=== PATIENT | male | born 1950 | race Caucasian/White ===

== ENCOUNTER → 2018-05-26 | Outpatient (CLI) | payer MEDICARE, BC ==
[~2018-05-26] MED LIST: ALLO300; Actos30 MG; BENAML10/40 PO; CARV6.25 PO; CODGUAEL PO; CYCL10; ELIQUIS2.5 MG; FENO160 PO; FOLI1 PO; HYDACE5 PO; HYDCHL50 PO; INS70/30PN SC; INSULANI SC; LOVA40 PO; LOVASA; WARF2.5 PO; htn med; other
[2018-05-26 18:39] LABS: Percent Saturation 19.9 % (20.0-50.0)
== END ==
LOC: LAB SHORT 12:53 → LAB 12:53
PROVIDERS: Internal Medicine Hematology & Oncology
DX: D64.9 Anemia, unspecified (principal)
CPT/HCPCS: 82728; 83540; 83550

== ENCOUNTER → 2019-03-12 | Outpatient (CLI) | payer MEDICARE, BC ==
[2019-03-13 08:05] LABS: Creatinine Urine 62.3 mg/dL (27.00-270.00); Protein, Urine Quantitative 71.1 mg/dL (0.0-11.9)
== END ==
LOC: LAB 07:30 → LAB SHORT 07:30 → LAB FUT 02-29 15:25
PROVIDERS: Internal Medicine Nephrology
DX: E55.9 Vitamin D deficiency, unspecified (principal); N18.3 Chronic kidney disease, stage 3 (moderate); D63.1 Anemia in chronic kidney disease; N25.81 Secondary hyperparathyroidism of renal origin; Z79.01 Long term (current) use of anticoagulants; R76.9 Abnormal immunological finding in serum, unspecified; R94.5 Abnormal results of liver function studies; R94.6 Abnormal results of thyroid function studies; G60.9 Hereditary and idiopathic neuropathy, unspecified
CPT/HCPCS: 81050; 82043; 82570; 84156

== ENCOUNTER 2019-09-12 07:20 | Day surgery (SDC) | payer MEDICARE, BC ==
[~2019-09-12] VITALS: Ht 170.2 cm; Wt 104.0 kg
[~2019-09-12 07:20] MED LIST changes: +ACTOS30 MG PO; +ALLO300 PO; +CARV25 PO; +CLON.1 PO; +CYCL10 PO; +ELIQUIS2.5 MG PO; +HIGH POTENCY I134 MG PO; +INSULANPEN SC; +IRBE75 PO; +LOVASTATIN40 MG PO; +Norco 7.5-3251 EACH PO; +TRULICITY0.75 MG/0. SC
== END 2019-09-12 09:07 | disposition home or self-care (01) ==
LOC: ORSCSDS 07:20
PROVIDERS: Ophthalmology
PROC: 08RK3JZ Replacement of Left Lens with Synthetic Substitute, Percutaneous Approach (ICD-10-PCS; principal; 2019-09-12 08:30)
DX: H25.12 Age-related nuclear cataract, left eye (principal); E11.36 Type 2 diabetes mellitus with diabetic cataract; G47.33 Obstructive sleep apnea (adult) (pediatric); E66.9 Obesity, unspecified; Z68.33 Body mass index [BMI] 33.0-33.9, adult; H26.9 Unspecified cataract; Z79.4 Long term (current) use of insulin
CPT/HCPCS: 82947; J2001; J2250; J3010; J3301; J7040; V2632

== ENCOUNTER → 2019-10-16 | Outpatient (CLI) | payer MEDICARE, BC | END | disposition home or self-care (01) | LOC: LAB SHORT 12:23 → PLD 12:23 | DX: D22.39 Melanocytic nevi of other parts of face (principal) | CPT/HCPCS: 88305 ==

== ENCOUNTER 2019-11-14 06:20 | Day surgery (SDC) | payer MEDICARE, BC ==
[~2019-11-14] VITALS: Ht 175.3 cm; Wt 106.0 kg
--- NOTE | 2019-11-14 06:47 | NUR ---
11/14/19 0647 Soha Etienne V PT STATES HE HAS A HEADACHE THAT STARTED "A FEW DAYS AGO" PT STATES HE THINKS THE HEADACHE IS RELATED TO HIS CATERACT. NO INTERVENTIONS NEEDED AT THIS TIME.
== END 2019-11-14 08:15 | disposition home or self-care (01) ==
LOC: ORSCSDS 06:20
PROVIDERS: Ophthalmology
PROC: 08RJ3JZ Replacement of Right Lens with Synthetic Substitute, Percutaneous Approach (ICD-10-PCS; principal; 2019-11-14 07:30)
DX: H25.11 Age-related nuclear cataract, right eye (principal); I10 Essential (primary) hypertension; E11.9 Type 2 diabetes mellitus without complications; G47.33 Obstructive sleep apnea (adult) (pediatric); N18.9 Chronic kidney disease, unspecified; E78.00 Pure hypercholesterolemia, unspecified; Z79.4 Long term (current) use of insulin; Z79.899 Other long term (current) drug therapy
CPT/HCPCS: 82947; J2001; J2250; J3010; J3301; V2632

== ENCOUNTER 2021-05-13 13:10 | Day surgery (SDC) | payer MEDICARE, BC ==
[~2021-05-13] VITALS: Ht 175.3 cm; Wt 114.7 kg
[2021-05-13] MEDS ORDERED: KLOR-CON 1010 ME3 PO (14:04)
[2021-05-13] MEDS ORDERED: IRBESARTAN75 M3 PO (14:04)
[2021-05-13] MEDS ORDERED: HYDR10 PO (14:04)
[2021-05-13] MEDS ORDERED: BASAGLAR K100 UNIT/3 SC (14:04)
[2021-05-13] MEDS ORDERED: FUROSEMIDE40 MG PO (14:04)
[2021-05-13] MEDS ORDERED: ATORVASTATIN CA20 MG PO (14:05)
== END 2021-05-13 14:45 | disposition home or self-care (01) ==
LOC: ORSCSDS 13:10
PROVIDERS: Internal Medicine Gastroenterology
PROC: 0DBM8ZX Excision of Descending Colon, Via Natural or Artificial Opening Endoscopic, Diagnostic (ICD-10-PCS; principal; 2021-05-13 14:30)
DX: Z12.11 Encounter for screening for malignant neoplasm of colon (principal); Z86.010 Personal history of colon polyps; D12.4 Benign neoplasm of descending colon; K57.30 Diverticulosis of large intestine without perforation or abscess without bleeding; K64.8 Other hemorrhoids; E66.9 Obesity, unspecified; G47.33 Obstructive sleep apnea (adult) (pediatric); Z98.84 Bariatric surgery status; E11.22 Type 2 diabetes mellitus with diabetic chronic kidney disease; I12.9 Hypertensive chronic kidney disease with stage 1 through stage 4 chronic kidney disease, or unspecified chronic kidney disease; N18.30 Chronic kidney disease, stage 3 unspecified; Z68.38 Body mass index [BMI] 38.0-38.9, adult; Z79.01 Long term (current) use of anticoagulants; Z79.4 Long term (current) use of insulin; Z79.899 Other long term (current) drug therapy
CPT/HCPCS: 82947; 88305; J0330; J0461; J2405; J2704; J7120

== ENCOUNTER 2022-03-23 07:47 | Day surgery (SDC) | payer MEDICARE, BC ==
[~2022-03-23] VITALS: Ht 175.3 cm; Wt 118.6 kg
[~2022-03-23 07:47] MED LIST changes: +ATORVASTATIN CA20 MG PO; +BASAGLAR K100 UNIT/3 SC; +FUROSEMIDE40 MG PO; +HYDR10 PO; +IRBESARTAN75 M3 PO; +KLOR-CON 1010 ME3 PO; +MINO2.5 PO; +Norco 5-325 Ta1 EACH PO
--- NOTE | 2022-03-23 09:09 | NUR ---
Ambulatory in Day SurgeryBair Paws warming gown applied. Surgical site prepped with 2% Chlorhexidine cloth wipe. History, Chart, Medications and Allergies reviewed before start of procedure.Lungs clear T/O to Auscultation. Patient confirms NPO status and agrees with scheduled surgery. Pre-Op teaching done. Pt verbalizes understanding. Patient States Post-Procedure ride home has been arranged, Patient reports completing Chlorhexadine shower X2 prior to admission to hospital. Ambulatory in Day SurgeryBair Paws warming gown applied. History, Chart, Medications and Allergies reviewed before start of procedure.Lungs clear T/O to Auscultation. Pre-Op teaching done. Pt verbalizes understanding. Surgical site prepped with 2% Chlorhexidine cloth wipe.
--- NOTE | 2022-03-23 11:52 | NUR ---
03/23/22 1152 Danilo Ortiz BLOOD SUGAR 100 TAKEN FROM RIGHT HAND AT 1148 PER ANESTHESIA.
[2022-03-23] MEDS ORDERED: Percocet 5-3251 EACH PO (15:45)
--- NOTE | 2022-03-23 18:26 | NUR ---
SHIFT SUMMARY SINCE ARRIVING TO THE UNIT, PT HAS DONE WELL. WASN'T ABLE TO WORK w/ THERAPY DUE TO SPINAL, BUT DID AMBULATE IN HALLWAYS & UP TO CHIAR AFTER SPINAL WORE OFF. PAIN CAME ON FAST BUT BETTER POST MEDICATION. EATING, DRINKING, VOIDING.
--- NOTE | 2022-03-24 00:33 | NUR ---
HYPERTENSIVE PT HYPERTENSIVE BP IN THE 170/180'S SBP. PT TOOL COZAAR AT HS, BUT UNABLE TO GIVE THE CARVEDILOL DUE TO CONSISTENT LOW HEARTRATE. DR. STONE NOTIFIED. NO NEW ORDERS AT THIS TIME, SHE STATES JUST TO MONITOR.
--- NOTE | 2022-03-24 05:42 | NUR ---
SHIFT SUMMARY PT POD 0 LEFT KNEE. PT OVERALL HAS DONE WELL OVERNIGHT, PAIN WELL CONTROLLED WITH OXY Q4. HE HAS BEEN UP AND AMBULATING. DRESSING C/D/I. PT DENIES N/T AND ABLE TO WIGGLE TOES. PT A/OX4, PLESANT WITH CARE. PT HAS BEEN HYPERTENSIVE, DR. STONE AWARE WITH NO NEW ORDERES GIVEN. NO ACUTE CHANGES OVERNIGHT, BED IN LOWEST POSIITON, CALL LIGHT WITHIN REACH.
[2022-03-24 05:47] LABS: BASOPHILS ABSOLUTE AUTO 0.01 K/mm3 (0.00-0.23); BASOPHILS PERCENT AUTO 0 % (0-2); EOSINOPHILS PERCENT AUTO 0 % (0-6); Hematocrit 26.4 % (37.0-53.0); Hemoglobin 8.2 g/dL (13.5-17.5); IMMATURE GRAN ABSOLUTE AUTO 0.03 K/mm3 (0.00-0.10); IMMATURE GRAN PERCENT AUTO 1 % (0-1); LYMPHOCYTES ABSOLUTE AUTO 0.26 K/mm3 (0.84-5.20); LYMPHOCYTES PERCENT AUTO 4 % (21-46); MONOCYTES ABSOLUTE AUTO 0.09 K/mm3 (0.16-1.47); MONOCYTES PERCENT AUTO 2 % (4-13); Mean Corpuscular HGB 29.1 pg (26.0-34.0); Mean Corpuscular HGB Conc 31.1 g/dL (31.5-36.5); Mean Corpuscular Volume 94 fL (80-100); Mean Platelet Volume 11.7 fL (9.1-12.4); NEUTROPHILS PERCENT AUTO 94 % (41-73); Platelet Count 189 K/mm3 (150-400); RDW Coefficient Variation 16.4 % (11.7-14.2); RDW Standard Deviation 56.3 fL (35.1-46.3); Red Blood Cell Count 2.82 M/mm3 (4.30-5.90); White Blood Cell Count 6.19 K/mm3 (4.00-11.30)
[2022-03-24 06:25] LABS: Bun/Creatinine Ratio 18.3 (12.0-20.0); Calcium, Blood 8.5 mg/dL (8.5-10.1); Creatinine, Blood 4.76 mg/dL (0.60-1.20); Potassium, Blood 6.1 mmol/L (3.5-5.5)
--- NOTE | 2022-03-24 06:45 | NUR ---
CRITICAL POTASSIUM CALL BACK FROM DR. ESPINOZA, HE STATES TO NOTIFY DAYSHIFT ATTENDING OF POTASSIUM RESULT. DAYSHIFT RN NOTIFIED. SEE CRITICAL VALUE NOTIFICATION FOR FURTHER DETAILS.
[2022-03-24 09:43] LABS: Bun/Creatinine Ratio 18.3 (12.0-20.0); Calcium, Blood 8.5 mg/dL (8.5-10.1); Creatinine, Blood 4.58 mg/dL (0.60-1.20); Potassium, Blood 5.7 mmol/L (3.5-5.5)
--- NOTE | 2022-03-24 11:20 | NUR ---
SCRIPT GIVEN TO TO GET FILLED
--- NOTE | 2022-03-24 14:35 | NUR ---
DISCHARGE PT STATES HE IS DONE WAITING FOR THERAPY & DEMANDS TO LEAVE. STATES HE HAS OUTPATIENT THERAPY WITHIN 2 DAYS. DISCHARGE EDUCATION DONE BY CLINICAL COORDINATOR. POLAR PACK & DRSGS SENT. ESCORTED OUT VIA W/C.
== END 2022-03-24 14:30 | disposition home or self-care (01) ==
LOC: SURS 07:47 → ORSCMMR 07:47 → SURS 13:31 → ORSCMMR 03-24 14:30
PROVIDERS: Family Medicine; Orthopaedic Surgery
PROC: 8E0Y0CZ Robotic Assisted Procedure of Lower Extremity, Open Approach (ICD-10-PCS; principal; 2022-03-23 09:15)
PROC: 0SRD0JA Replacement of Left Knee Joint with Synthetic Substitute, Uncemented, Open Approach (ICD-10-PCS; principal; 2022-03-23 09:15)
DX: M17.12 Unilateral primary osteoarthritis, left knee (principal); G47.33 Obstructive sleep apnea (adult) (pediatric); Z86.718 Personal history of other venous thrombosis and embolism; Z79.01 Long term (current) use of anticoagulants; E66.9 Obesity, unspecified; Z68.36 Body mass index [BMI] 36.0-36.9, adult; Z86.16 Personal history of COVID-19; E78.5 Hyperlipidemia, unspecified; I10 Essential (primary) hypertension; N17.9 Acute kidney failure, unspecified; E11.9 Type 2 diabetes mellitus without complications; Z79.899 Other long term (current) drug therapy; Z79.4 Long term (current) use of insulin
CPT/HCPCS: 27447; S2900; 36415; 73560-LT; 80048; 82947; 85025; 86850; 86900; 86901; 94660; 97110; 97161; A9270; C1776; J0171; J0690; J0735; J1100; J1170; J1815; J1940; J2250; J2370; J2405; J2704; J2795; J3010; J3370; J7030; J7050; J7060; J7120

== ENCOUNTER → 2022-05-27 | Outpatient (CLI) | payer MEDICARE, BC ==
[~2022-05-27] MED LIST changes: +Percocet 5-3251 EACH PO
[2022-05-27 18:07] LABS: Albumin, Blood 2.9 g/dL (3.4-5.0); Anion Gap 9 mmol/L (6-16); Blood Urea Nitrogen 85 mg/dL (8-24); Bun/Creatinine Ratio 16.2 (12.0-20.0); CO2, Blood 23 mmol/L (21-32); Calcium, Blood 8.7 mg/dL (8.5-10.1); Chloride, Blood 110 mmol/L (98-108); Creatinine, Blood 5.24 mg/dL (0.60-1.20); Glomerular Filtration Rate 11 (60-); Glucose, Blood 193 mg/dL (70-99); Phosphorus, Blood 5.7 mg/dL (2.5-4.9); Potassium, Blood 4.7 mmol/L (3.5-5.5); Sodium, Blood 142 mmol/L (136-145)
[2022-05-29 09:11] LABS: HBSAG SCREEN Negative (Negative); HCV AB <0.1 (0.0-0.9); HEP A AB, IGM Negative (Negative); HEP B CORE AB, IGM Negative (Negative)
== END | disposition home or self-care (01) ==
LOC: LAB SHORT 15:57 → LAB 15:57
PROVIDERS: Internal Medicine Nephrology
DX: N18.5 Chronic kidney disease, stage 5 (principal); D75.1 Secondary polycythemia; R76.9 Abnormal immunological finding in serum, unspecified; R94.5 Abnormal results of liver function studies; R94.6 Abnormal results of thyroid function studies; E83.51 Hypocalcemia
CPT/HCPCS: 80069; 80074; 86704

== ENCOUNTER 2022-05-28 13:52 | Inpatient (IN) | payer MEDICARE, BC ==
[~2022-05-28] VITALS: Ht 175.3 cm; Wt 118.2 kg
[2022-05-28 15:07] LABS: BASOPHILS ABSOLUTE AUTO 0.02 K/mm3 (0.00-0.23); BASOPHILS PERCENT AUTO 0 % (0-2); EOSINOPHILS ABSOLUTE AUTO 0.39 K/mm3 (0.00-0.68); EOSINOPHILS PERCENT AUTO 7 % (0-6); Hematocrit 24.1 % (37.0-53.0); Hemoglobin 7.4 g/dL (13.5-17.5); IMMATURE GRAN ABSOLUTE AUTO 0.05 K/mm3 (0.00-0.10); IMMATURE GRAN PERCENT AUTO 1 % (0-1); LYMPHOCYTES PERCENT AUTO 9 % (21-46); MONOCYTES ABSOLUTE AUTO 0.37 K/mm3 (0.16-1.47); MONOCYTES PERCENT AUTO 7 % (4-13); Mean Corpuscular HGB 28.8 pg (26.0-34.0); Mean Corpuscular HGB Conc 30.7 g/dL (31.5-36.5); Mean Corpuscular Volume 94 fL (80-100); Mean Platelet Volume 11.8 fL (9.1-12.4); NEUTROPHILS PERCENT AUTO 76 % (41-73); NRBC ABSOLUTE 0.02 K/mm3 (0.00-0.02); NRBC Auto 0.4 /100 WBC (0.0-0.2); Platelet Count 202 K/mm3 (150-400); RDW Coefficient Variation 18.9 % (11.7-14.2); RDW Standard Deviation 62.1 fL (35.1-46.3); Red Blood Cell Count 2.57 M/mm3 (4.30-5.90); White Blood Cell Count 5.53 K/mm3 (4.00-11.30)
[2022-05-28 15:18] LABS: Albumin, Blood 3.1 g/dL (3.4-5.0); Albumin/Globulin Ratio 0.9 (0.8-1.8); Bilirubin, Total 0.5 mg/dL (0.1-1.0); Bun/Creatinine Ratio 15.9 (12.0-20.0); Calcium, Blood 8.7 mg/dL (8.5-10.1); Creatinine, Blood 5.28 mg/dL (0.60-1.20); Globulin, Blood 3.5 g/dL (2.2-4.0); Potassium, Blood 4.4 mmol/L (3.5-5.5); Total Protein, Blood 6.6 g/dL (6.4-8.2)
--- NOTE | 2022-05-28 19:38 | NUR ---
CALLED DR GREEN- PT HAD A CONSULT FOR PERMACATH PLACEMENT, DR GONCALVES CAN NOT PLACE THOSE. NO IR IS AVAILABLE AT THIS TIME, DR GABRIEL WILL BE AVAILABLE ON TUESDAY AND CAN PLACE THOSE. CALLED DR GREEN TO SEE IF PRODUCTION SUPERINTENDENT HYDRO NEEDS TO BE CONSULTED TO PLACE A TEMPORARY CATHETER. PER DR GREEN HOLD OFF ON CONSULTING THEM AT THIS TIME WE WILL SEE HOW THE PT DOES OVERNIGHT AND REEVALUATE IN THE MORNING.
--- NOTE | 2022-05-28 19:50 | NUR ---
PT HOME MEDS RECONCILED- CALLED DR BABB. HE IS AWARE THEY ARE RECONCILED. HE WILL ORDER THEM TOMORROW. PT HAS NOT RECIEVED HIS MEDICATIONS TODAY, DR AWARE NO HOME MEDICATIONS ORDERED AT THIS TIME, PER DR BABB.
--- NOTE | 2022-05-28 20:45 | NUR ---
PT HERE JUST PRIOR TO CHANGE OF SHIFT. PT REPORTS HAVING A BM TODAY. PT GIVEN A SNACK AFTER CBG TAKEN TONIGHT. PT REPORTS HE OCCASIONALLY RUNS LOW ON HIS BLOOD SUGARS AT HOME. PT HAS A HISTORY OF JAHAIRA MCCARTHY JANUARY 29 - PT PLACED IN ISOLATION FOR MERSA HISTORY. CALL LIGHT WITHIN REACH. BED IN LOW POSITION. FLUIDS PROVIDED. PT ON 1L FLUID RESTRICTION. PT DENIES ANY PAIN OR DISCOMFORT.
--- NOTE | 2022-05-28 22:04 | NUR ---
PT REPORTS HE USED TO MONITOR HIS BLOOD SUGAR MORE OFTEN AT HOME, TYPICALLY HE ONLY MONITORS HIS BLOOD SUGAR ONCE A WEEK NOW, HE REPORTS HE IS "ABLE TO MAINTAIN HIS BLOOD SUGAR." PT REPORTS HE OCCASIONALLY RUNS LOW BLOOD SUGARS AT HOME, AND REPORTS HE KNOWS THE SIGNS/SYMPTOMS OF LOW BLOOD SUGAR. PT ALSO REPORTS HE HAS RECEIVED DIABETIC EDUCATION IN THE PAST, AND DECLINED ANY FURTHER DIABETIC EDUCATION. CALL LIGHT WITHIN REACH. BED IN LOW POSITION. PT REPORTS RECENT SURGERY ON HIS LEFT KNEE, MARCH 31 - HIS BROUGHT HIS LEFT LEG LIFT/ELEVATOR.
--- NOTE | 2022-05-28 23:02 | NUR ---
DR. GREEN IN TONIGHT TO SEE PT. CONSULT FOR PERMACATH WILL NEED TO BE FOLLOWED UP ON TOMORROW. DR. GREEN REPORTS HE WILL REVIEW AM LABS, AND PT IS CURRENTLY ON IV LASIX. I WILL REPORT THIS OFF TO ONCOMING SHIFT IN AM, REGARDING CONSULT ABOVE.
--- NOTE | 2022-05-29 02:26 | NUR ---
PT AWAKE, RESTING IN BED. PT DENIES ANY REQUESTS. CLEAR YELLOW URINE OUT IN THE URINAL. CALL LIGHT WITHIN REACH. BED IN LOW POSITION. FLUIDS AT BEDSIDE.
--- NOTE | 2022-05-29 04:12 | NUR ---
SHIFT SUMMARY - NO ACUTE CHANGES SINCE ADMIT LAST NOC. SEE 1938 NOTE FROM PAWEL, REGARDING DR. GREEN CONVERSATION AND DR. LEAL REGARDING PERMACATH PLACEMENT. PT DENIED ANY COMPLAINTS DURING THE NIGHT. PT SLEPT FOR APPX 4 HOURS TONIGHT. PT IS ON A 1L FLUID RESTRICTION. PT CONTINUES TO URINATE - CLEAR YELLOW URINE OUT LAST NOC. RESPIRATIONS EVEN AND UNLABORED THROUGHOUT THE NIGHT. CALL LIGHT WITHIN REACH. BED IN LOW POSITION. FLUIDS AT BEDSIDE. WILL CONTINUE TO MONITOR UNTIL AM SHIFT CHANGE.
--- NOTE | 2022-05-29 04:19 | NUR ---
PT PULLED OUT OF ISOLATION - DUE TO NOTE IN ADMIN DATA - REVIEWED WITH BENJAMIN ALTAMIRANO.
[2022-05-29 05:18] LABS: BASOPHILS ABSOLUTE AUTO 0.01 K/mm3 (0.00-0.23); BASOPHILS PERCENT AUTO 0 % (0-2); EOSINOPHILS ABSOLUTE AUTO 0.39 K/mm3 (0.00-0.68); EOSINOPHILS PERCENT AUTO 8 % (0-6); Hematocrit 22.3 % (37.0-53.0); Hemoglobin 6.8 g/dL (13.5-17.5); IMMATURE GRAN ABSOLUTE AUTO 0.02 K/mm3 (0.00-0.10); IMMATURE GRAN PERCENT AUTO 0 % (0-1); LYMPHOCYTES ABSOLUTE AUTO 0.61 K/mm3 (0.84-5.20); LYMPHOCYTES PERCENT AUTO 12 % (21-46); MONOCYTES ABSOLUTE AUTO 0.41 K/mm3 (0.16-1.47); MONOCYTES PERCENT AUTO 8 % (4-13); Mean Corpuscular HGB 28.8 pg (26.0-34.0); Mean Corpuscular HGB Conc 30.5 g/dL (31.5-36.5); Mean Corpuscular Volume 95 fL (80-100); Mean Platelet Volume 11.3 fL (9.1-12.4); NEUTROPHILS ABSOLUTE AUTO 3.74 K/mm3 (1.96-9.15); NEUTROPHILS PERCENT AUTO 72 % (41-73); NRBC ABSOLUTE 0.02 K/mm3 (0.00-0.02); NRBC Auto 0.4 /100 WBC (0.0-0.2); Platelet Count 185 K/mm3 (150-400); RDW Coefficient Variation 19.2 % (11.7-14.2); RDW Standard Deviation 62.9 fL (35.1-46.3); Red Blood Cell Count 2.36 M/mm3 (4.30-5.90); White Blood Cell Count 5.18 K/mm3 (4.00-11.30)
[2022-05-29 05:52] LABS: Albumin, Blood 2.8 g/dL (3.4-5.0); Albumin/Globulin Ratio 0.9 (0.8-1.8); Bilirubin, Total 0.5 mg/dL (0.1-1.0); Bun/Creatinine Ratio 15.9 (12.0-20.0); Calcium, Blood 8.5 mg/dL (8.5-10.1); Creatinine, Blood 5.29 mg/dL (0.60-1.20); Magnesium, Blood 2.4 mg/dL (1.6-2.4); Phosphorus, Blood 5.6 mg/dL (2.5-4.9); Potassium, Blood 4.4 mmol/L (3.5-5.5); Total Protein, Blood 5.8 g/dL (6.4-8.2)
--- NOTE | 2022-05-29 10:46 | NUR ---
CALLED DR BABB- NIGHT HOSPITALIST HAD ALREADY ORDERED [address] BABB IS AWARE AND WOULD LIKE A SECOND UNIT TRANSFUSED WELL AFTER THIS UNIT IS COMPLETED.
--- NOTE | 2022-05-29 11:24 | NUR ---
BLOOD VITALS AND LUNG REASSESS- PT HAD FINE CRACKLES NOTED THIS MORNING AT THE START OF THE TRANSFUSION, ON REASSESS IT WAS NOTED THAT THE PT LUNG BASES SEEM TO BE DEMINISHED AND CRACKLES ARE A LITTLE HIGHER. CALLED DR BABB TO CONFIRM HE WANTS THE PT TO RECIEVE THE SECOND UNIT GIVEN THESE FINDINGS. PERIPHERAL EDEMA HAS GONE DOWN AND PER DR GREEN THE IV LASIX IS TO BE REDUCED TO ONCE DAILY. DR OLVERA. ORDER RECIEVED TO HOLD THE SECOND UNIT OF BLOOD TODAY.
--- NOTE | 2022-05-29 18:37 | NUR ---
SHIFT SUMMARY: PT ALERT AND ORIENTATED. PT RECEIVED I UNIT OF PRBC'C AT 1015. PT TOLERATED BLOOD TRANSFUSIONS WITH NO ADVERSE REACTIONS. PT ON 30MIN ASSESSMENT OF BLOOD TRANSFUSION HAD BILATERAL DIMINISHED LUNGS SOUNDS WITH CRACKLES. PT VITAL SIGNS STABLE AND BLOOD TRANSFUSION CONTIUNED. DR. SEXTON ORDERED 1 UNIT OF PRBC'S TO BE HELD UNTIL MORNING LABS ON 05/30/22 DR. GREEN ORDERED IV LASIX TO BE CHANGED FROM BID TO DAILY STARTING 06/30/22. PT AMBULATED IN THE ROOM INDEPENDANTLY. PT HAD DYSPNEA ON EXERTION WITH PERIODS OF REST. PT CONTIENT OF BOWEL AND BLADDER, PT FORGETS AT TIMES TO USE URINAL FOR STRICT I&O MONITORING. PT ON A FLUID RESTRICTION OF 1000ML. PT RESTING IN BED WITH CALL LIGHT WITHIN REACH.
--- NOTE | 2022-05-29 20:00 | NUR ---
PT VISITING WITH FAMILY. NO NEEDS. CALL LT IN REACH.
--- NOTE | 2022-05-29 22:00 | NUR ---
NO ACUTE CHANGES. PT WATCHING TV. CALL LT IN REACH.
--- NOTE | 2022-05-30 00:49 | NUR ---
PT RESTING QUIETLY. CALL LT IN REACH.
--- NOTE | 2022-05-30 02:27 | NUR ---
PT RESTING QUIETLY. CPAP IN PLACE. 95% CONT BIOX. CALL LT IN REACH.
--- NOTE | 2022-05-30 03:42 | NUR ---
PT CONTINUES TO REST QUIETLY. CPAP IN PLACE. CONT BIOX IN PLACE. CALL LT IN REACH.
--- NOTE | 2022-05-30 03:45 | NUR ---
SHIFT SUMMARY: PT RESTED WELL. WORE CPAP T/O SHIFT, RA, O2 SATS 95%. A/O. USES CALL LT APPROPRIATELY. NO COMPLAINTS. DENIED SOB. BLE SWELLING IMPROVING. SCDS IN PLACE. FOLLOWING 1 LITER FLUID RESTRICTION. VOIDING WELL. NO ACUTE CHANGES. WILL CONTINUE TO PROVIDE CARE UNTIL SHIFT REPORT.
[2022-05-30 05:19] LABS: BASOPHILS ABSOLUTE AUTO 0.02 K/mm3 (0.00-0.23); BASOPHILS PERCENT AUTO 0 % (0-2); EOSINOPHILS ABSOLUTE AUTO 0.37 K/mm3 (0.00-0.68); EOSINOPHILS PERCENT AUTO 6 % (0-6); Hematocrit 24.1 % (37.0-53.0); Hemoglobin 7.5 g/dL (13.5-17.5); IMMATURE GRAN ABSOLUTE AUTO 0.02 K/mm3 (0.00-0.10); IMMATURE GRAN PERCENT AUTO 0 % (0-1); LYMPHOCYTES ABSOLUTE AUTO 0.41 K/mm3 (0.84-5.20); LYMPHOCYTES PERCENT AUTO 6 % (21-46); MONOCYTES ABSOLUTE AUTO 0.48 K/mm3 (0.16-1.47); MONOCYTES PERCENT AUTO 8 % (4-13); Mean Corpuscular HGB 28.8 pg (26.0-34.0); Mean Corpuscular HGB Conc 31.1 g/dL (31.5-36.5); Mean Corpuscular Volume 93 fL (80-100); Mean Platelet Volume 11.6 fL (9.1-12.4); NEUTROPHILS ABSOLUTE AUTO 5.06 K/mm3 (1.96-9.15); NEUTROPHILS PERCENT AUTO 80 % (41-73); NRBC ABSOLUTE 0.03 K/mm3 (0.00-0.02); NRBC Auto 0.5 /100 WBC (0.0-0.2); Platelet Count 176 K/mm3 (150-400); RDW Coefficient Variation 18.9 % (11.7-14.2); RDW Standard Deviation 60.2 fL (35.1-46.3); White Blood Cell Count 6.36 K/mm3 (4.00-11.30)
[2022-05-30 05:29] LABS: Albumin, Blood 2.9 g/dL (3.4-5.0); Albumin/Globulin Ratio 0.9 (0.8-1.8); Bilirubin, Total 0.8 mg/dL (0.1-1.0); Bun/Creatinine Ratio 15.9 (12.0-20.0); Calcium, Blood 8.5 mg/dL (8.5-10.1); Creatinine, Blood 5.03 mg/dL (0.60-1.20); Globulin, Blood 3.2 g/dL (2.2-4.0); Magnesium, Blood 2.2 mg/dL (1.6-2.4); Potassium, Blood 4.3 mmol/L (3.5-5.5); Total Protein, Blood 6.1 g/dL (6.4-8.2)
--- NOTE | 2022-05-30 12:40 | NUR ---
DR. ROMERO: PT LANTUS REDUCED FROM 10 UNITS TO 5 UNITS.
--- NOTE | 2022-05-30 18:50 | NUR ---
SHIFT SUMMARY: PT ALERT AND OREINTATED SITTING IN BED. PT AMBULATED IN ROOM INDEPENDANTLY. DR. SEXTON DECREASED LANTUS FROM 10 UNITS TO 5 UNITS AND ADDED THE ROBITUSSIN 10ML BID PRN FOR A NONPRODUCTIVE COUGH. PT IS ON CONTINOUS PULSE OXIMETER STATING IN THE 90'S. PROVIDER CONSULT PLACE THROUGH ORDER MANAGEMENT FOR A CONSULTATION TO DR. MURILLO FOR A PERMACATH PLACEMENT FOR HEMODIALYSIS BY RN PAWEL Loyd. PT RESTING IN BED WITH CALL LIGHT WITHIN REACH.
--- NOTE | 2022-05-30 21:40 | NUR ---
SNACK GIVEN TO PT. PT'S ASSISTED HIM WITH A SHOWER, STATES HE FEELS SO MUCH BETTER. NO COMPLAINTS. CBG 145, NO COVERAGE INDICATED. NO OTHER NEEDS. WILL CONTINUE TO PROVIDE CARE T/O SHIFT.
--- NOTE | 2022-05-30 22:43 | NUR ---
PT RESTING QUIETLY. CPAP ON. CONT BIOX 94%. CALL LT IN REACH.
--- NOTE | 2022-05-31 | NUR ---
PT RESTING QUIETLY. CPAP AND CONT BIOX IN PLACE. CALL LT IN REACH.
--- NOTE | 2022-05-31 01:43 | NUR ---
PT RESTING QUIETLY. CALL LT IN REACH.
--- NOTE | 2022-05-31 03:51 | NUR ---
SHIFT SUMMARY: NO ACUTE CHANGES. PT RESTED WELL T/O SHIFT. NO COMPLAINTS. CPAP DURING SLEEP WITH CONT BIOX IN PLACE. HAS BEEN INDEP IN RM. RA. SWELLING IN BLE IS IMPROVING. WILL CONTINUE TO PROVIDE CARE UNTIL SHIFT REPORT.
[2022-05-31 05:32] LABS: Hematocrit 23.2 % (37.0-53.0); Hemoglobin 7.2 g/dL (13.5-17.5)
[2022-05-31 05:48] LABS: Albumin, Blood 2.6 g/dL (3.4-5.0); Anion Gap 8 mmol/L (6-16); Blood Urea Nitrogen 84 mg/dL (8-24); Bun/Creatinine Ratio 17.4 (12.0-20.0); CO2, Blood 25 mmol/L (21-32); Calcium, Blood 8.5 mg/dL (8.5-10.1); Chloride, Blood 112 mmol/L (98-108); Creatinine, Blood 4.83 mg/dL (0.60-1.20); Glomerular Filtration Rate 12 (60-); Glucose, Blood 100 mg/dL (70-99); Magnesium, Blood 2.2 mg/dL (1.6-2.4); Phosphorus, Blood 4.8 mg/dL (2.5-4.9); Potassium, Blood 4.1 mmol/L (3.5-5.5); Sodium, Blood 145 mmol/L (136-145)
[2022-05-31 12:19] LABS: Influenza A, PCR NEGATIVE (NEGATIVE); Influenza B, PCR NEGATIVE (NEGATIVE); Resp Syncytial Virus, PCR NEGATIVE (NEGATIVE); SARS-Cov-2 (COVID-19) PCR, MMC NEGATIVE (NEGATIVE)
--- NOTE | 2022-05-31 16:55 | NUR ---
05/31/22 1655 Subha Keys 2G ANCEF GIVEN FROM ANESTHESIA PYXIS
--- NOTE | 2022-05-31 18:24 | NUR ---
SHIFT SUMMARY PT RETURNED FROM PERMACATH SURGERY AT 1715. PERMACATH TO RIGHT CHEST WALL, NO BLEEDING, BRUISING OR SWELLING. PT FEELS NO PAIN, BUT SOME PRESSURE. HAD A BM TODAY AND STATES THAT STOMACH FEELS MUCH BETTER. PT WILL GET DIALYSIS TOMORROW AND WILL REMAIN UNIL A CHAIR TIME IS FOUND. BED IN LOWEST POSITION AND CALL LIGHT IN REACH. FAMIY IN ROOM.
[2022-06-01 05:06] LABS: BASOPHILS ABSOLUTE AUTO 0.01 K/mm3 (0.00-0.23); BASOPHILS PERCENT AUTO 0 % (0-2); EOSINOPHILS PERCENT AUTO 0 % (0-6); Hemoglobin 7.9 g/dL (13.5-17.5); IMMATURE GRAN ABSOLUTE AUTO 0.04 K/mm3 (0.00-0.10); IMMATURE GRAN PERCENT AUTO 1 % (0-1); LYMPHOCYTES ABSOLUTE AUTO 0.21 K/mm3 (0.84-5.20); LYMPHOCYTES PERCENT AUTO 4 % (21-46); MONOCYTES ABSOLUTE AUTO 0.03 K/mm3 (0.16-1.47); MONOCYTES PERCENT AUTO 1 % (4-13); Mean Corpuscular HGB 28.5 pg (26.0-34.0); Mean Corpuscular HGB Conc 30.4 g/dL (31.5-36.5); Mean Corpuscular Volume 94 fL (80-100); Mean Platelet Volume 10.6 fL (9.1-12.4); NEUTROPHILS ABSOLUTE AUTO 4.81 K/mm3 (1.96-9.15); NEUTROPHILS PERCENT AUTO 94 % (41-73); Platelet Count 176 K/mm3 (150-400); RDW Standard Deviation 63.4 fL (35.1-46.3); Red Blood Cell Count 2.77 M/mm3 (4.30-5.90)
--- NOTE | 2022-06-01 05:23 | NUR ---
SHIFT SUMMARY: PT IS ALERT AND ORIENTED. PT IS CALM AND COOPERATIVE WITH CARE. PT CALLS APPROPRIATELY. PT IS INDEPENDENT IN THE ROOM. PT DENIES PAIN, NAUSEA, VOMITING, AND SOB. PT SLEPT MUCH OF THE NIGHT WHEN NOT DISTURBED. NO ACUTE CHANGES OR COMPLICATIONS THIS SHIFT. BED IN LOW POSITION, CALL LIGHT WITHIN REACH. WILL CONTINUE TO MONITOR.
[2022-06-01 06:16] LABS: Percent Saturation 14.3 % (20.0-50.0)
[2022-06-01 06:22] LABS: Albumin, Blood 2.5 g/dL (3.4-5.0); Albumin/Globulin Ratio 0.7 (0.8-1.8); Bilirubin, Total 0.4 mg/dL (0.1-1.0); Bun/Creatinine Ratio 17.8 (12.0-20.0); Calcium, Blood 8.3 mg/dL (8.5-10.1); Creatinine, Blood 4.94 mg/dL (0.60-1.20); Globulin, Blood 3.4 g/dL (2.2-4.0); Phosphorus, Blood 5.5 mg/dL (2.5-4.9); Potassium, Blood 4.7 mmol/L (3.5-5.5); Total Protein, Blood 5.9 g/dL (6.4-8.2)
--- NOTE | 2022-06-01 17:24 | NUR ---
SHIFT SUMMARY PT HAD DIALYSIS SHAHZ[facility] . HE DID VERY WELL, WAS ABLE TO GIVE ALL SCHEDULED BP MEDICATIONS AFTER. HE IS EATING, SWELLING HAS GONE DOWN. PT CAN BREATHE MUCH EASIER AND HE IS EAGER TO GO HOME. HAS CHECKED OFF PT IS WAITING FOR A DIALYSIS CHAIR AND WILL THEN DISCHARGE
[2022-06-02 04:40] LABS: Hematocrit 24.3 % (37.0-53.0); Hemoglobin 7.5 g/dL (13.5-17.5)
[2022-06-02 05:01] LABS: Albumin, Blood 2.5 g/dL (3.4-5.0); Anion Gap 7 mmol/L (6-16); Blood Urea Nitrogen 73 mg/dL (8-24); Bun/Creatinine Ratio 16.8 (12.0-20.0); CO2, Blood 28 mmol/L (21-32); Chloride, Blood 105 mmol/L (98-108); Creatinine, Blood 4.35 mg/dL (0.60-1.20); Glomerular Filtration Rate 14 (60-); Glucose, Blood 165 mg/dL (70-99); Magnesium, Blood 2.1 mg/dL (1.6-2.4); Phosphorus, Blood 4.2 mg/dL (2.5-4.9); Potassium, Blood 3.9 mmol/L (3.5-5.5); Sodium, Blood 140 mmol/L (136-145)
--- NOTE | 2022-06-02 05:45 | NUR ---
SHIFT SUMMARY: PT IS ALERT AND ORIENTED. PT IS CALM AND COOPERATIVE WITH CARE. PT CALLS APPROPROPRIATELY. PT UP WALKING IN THE ROOM AND HALLWAY EARLY IN THE NIGHT. PT DENIES PAIN, NAUSEA, VOMITING, AND SOB. NO ACUTE CHANGES OR COMPLICATIONS OVERNIGHT. WILL CONTINUE TO MONITOR.
[2022-06-02 08:11] LABS: HBSAG SCREEN Negative (Negative); HCV AB <0.1 (0.0-0.9); HEP A AB, IGM Negative (Negative); HEP B CORE AB, IGM Negative (Negative); HEP B CORE AB, TOT Negative (Negative)
--- NOTE | 2022-06-02 18:21 | NUR ---
SHIFT SUMMARY NO ACUTE CHANGES THIS SHIFT. PTS BLOOD PRESSURE WAS SOFT TODAY BUT RESOLVED POST DIALYSIS. PT IS EAGER TO LEAVE, BUT STILL LOOKING FOR A CHAIR IN DIALYSIS. BED IN LOWEST POSITION, CALL LIGHT IN REACH, IN ROOM
[2022-06-03 05:06] LABS: Hemoglobin 7.8 g/dL (13.5-17.5)
[2022-06-03 05:41] LABS: Albumin, Blood 2.6 g/dL (3.4-5.0); Anion Gap 7 mmol/L (6-16); Blood Urea Nitrogen 48 mg/dL (8-24); Bun/Creatinine Ratio 13.3 (12.0-20.0); CO2, Blood 30 mmol/L (21-32); Calcium, Blood 8.1 mg/dL (8.5-10.1); Chloride, Blood 103 mmol/L (98-108); Glomerular Filtration Rate 17 (60-); Glucose, Blood 134 mg/dL (70-99); Magnesium, Blood 1.9 mg/dL (1.6-2.4); Phosphorus, Blood 3.1 mg/dL (2.5-4.9); Potassium, Blood 3.9 mmol/L (3.5-5.5); Sodium, Blood 140 mmol/L (136-145)
--- NOTE | 2022-06-03 06:08 | NUR ---
SHIFT SUMMARY PATIENT ALERT AND ORIENTED. HAD NO COMPLAINTS OF PAIN OR SHORTNESS OF BREATH. NO ACUTE ISSUES NOTED OVERNIGHT. CALL LIGHT WITHIN REACH. REPORT GIVEN TO ONCOMING RN.
--- NOTE | 2022-06-03 16:43 | NUR ---
ALERT AND ORIENTED, PLEASANT TO CARE, MAKES NEEDS KNOWN, NO DIALYSIS TODAY, PATIENT IS STILL WAITING FOR BED AVAILABLITY FOR DIALYSIS BEFORE HE CAN DISCHARGE, PERMA CATH TO [place], GAIL NO S/S OF INFECTION, INDEPENDENT IN ROOM, WILL CONITNUE TO MONITOR
[2022-06-04 04:47] LABS: Hematocrit 25.2 % (37.0-53.0); Hemoglobin 7.7 g/dL (13.5-17.5)
[2022-06-04 05:08] LABS: Albumin, Blood 2.5 g/dL (3.4-5.0); Anion Gap 8 mmol/L (6-16); Blood Urea Nitrogen 75 mg/dL (8-24); Bun/Creatinine Ratio 19.5 (12.0-20.0); CO2, Blood 28 mmol/L (21-32); Calcium, Blood 8.2 mg/dL (8.5-10.1); Chloride, Blood 104 mmol/L (98-108); Creatinine, Blood 3.84 mg/dL (0.60-1.20); Glomerular Filtration Rate 16 (60-); Glucose, Blood 135 mg/dL (70-99); Phosphorus, Blood 3.4 mg/dL (2.5-4.9); Potassium, Blood 3.6 mmol/L (3.5-5.5); Sodium, Blood 140 mmol/L (136-145)
--- NOTE | 2022-06-04 13:00 | NUR ---
patient discharged home, both patient and stated undestanding of discharge needs and follow up, patient pleasant to care
== END 2022-06-04 13:05 | disposition home or self-care (01) | DRG 674 ==
LOC: ER 13:52 → MEDS 16:30 → ENPENDDIS 06-01 17:14 → MEDS 06-04 13:05
PROVIDERS: Hospitalist; Internal Medicine Nephrology; Student in an Organized Health Care Education/Training Program; Surgery; ADMIT Internal Medicine
PROC: 30233N1 Transfusion of Nonautologous Red Blood Cells into Peripheral Vein, Percutaneous Approach (ICD-10-PCS; 2022-05-29)
PROC: 02HV33Z Insertion of Infusion Device into Superior Vena Cava, Percutaneous Approach (ICD-10-PCS; 2022-05-31)
PROC: B548ZZA Ultrasonography of Superior Vena Cava, Guidance (ICD-10-PCS; 2022-05-31)
PROC: 5A1D70Z Performance of Urinary Filtration, Intermittent, Less than 6 Hours Per Day (ICD-10-PCS; 2022-05-31)
PROC: 0JH63XZ Insertion of Tunneled Vascular Access Device into Chest Subcutaneous Tissue and Fascia, Percutaneous Approach (ICD-10-PCS; principal; 2022-05-31 16:00)
DX: N17.9 Acute kidney failure, unspecified (principal); D68.59 Other primary thrombophilia; I13.2 Hypertensive heart and chronic kidney disease with heart failure and with stage 5 chronic kidney disease, or end stage renal disease; E87.70 Fluid overload, unspecified; N18.6 End stage renal disease; N25.81 Secondary hyperparathyroidism of renal origin; Z20.822 Contact with and (suspected) exposure to COVID-19; I50.9 Heart failure, unspecified; E11.22 Type 2 diabetes mellitus with diabetic chronic kidney disease; D63.1 Anemia in chronic kidney disease; E78.5 Hyperlipidemia, unspecified; Z96.652 Presence of left artificial knee joint; Z98.84 Bariatric surgery status; Z86.711 Personal history of pulmonary embolism; Z86.718 Personal history of other venous thrombosis and embolism; Z88.8 Allergy status to other drugs, medicaments and biological substances; Z79.4 Long term (current) use of insulin; Z79.899 Other long term (current) drug therapy
CPT/HCPCS: 0241U; 36415; 71045; 77001; 80053; 80069; 80074; 82607; 82728; 82746; 82947; 83540; 83550; 83735; 83880; 84100; 85014; 85018; 85025; 86317; 86704; 86708; 86803; 86850; 86900; 86901; 86923; 87340; 93005; 93010; 94660; 94760; 94762; 96372; 96374; 96376; 99285-25; A9270; C1750; G0378; J0881; J1100; J1644; J1815; J1940; J2001; J2405; J2704; J3010; J7030; J7050; P9016

== ENCOUNTER → 2022-09-30 | Outpatient (CLI) | payer MEDICARE, BC | LOC: LAB SHORT 15:08 | DX: R94.31 Abnormal electrocardiogram [ECG] [EKG] (principal) | CPT/HCPCS: 84484 ==

== ENCOUNTER 2023-11-14 07:08 | Day surgery (SDC) | payer MEDICARE, BC ==
[~2023-11-14] VITALS: Ht 175.3 cm; Wt 107.0 kg
[~2023-11-14 07:08] MED LIST changes: +Calcium Acetat667 MG PO; +Carisoprodol350 MG PO; +FEOSOL BIFERA 228 MG; +GABA100 PO; +HYDR1TAB94 PO; +KRILLOIL; +MULVITA PO; +POTA10T PO; +THERA-D2000 UNIT PO; +UBID10 PO; +[UNRECOGNIZED DRUG - OTHER]
[2023-11-14 07:37] VITALS: BP 138/47
[2023-11-14 08:48] VITALS: BP 100/36
[2023-11-14 09:00] VITALS: BP 104/36
[2023-11-14 09:15] VITALS: BP 108/40
[2023-11-14 09:30] VITALS: BP 98/32
--- NOTE | 2023-11-14 09:52 | NUR ---
PT AND S/O VERBALIZES UNDERSTANDING WRITTEN INSTRUCTIONS. DENIES QUESTIONS OR CONCERNS. PT R RADIAL TR BAND FULLY DEFLATED. NO BLEEDING OR HEMATOMA NOTED. VSS. NADN. CALL LIGHT WITHIN REACH.
--- NOTE | 2023-11-14 09:59 | NUR ---
PT DRESSES SELF WITH MINIMAL ASSISTANCE. PT AMBULUATES TO RESTROOM AND BACK WITHOUT DIFF. PT R RADIAL TR BAND REMOVED. NO BLEEDING OR HEMATOMA NOTED. VSS. NADN. DOT CLOTH APPLIED TO R RADIAL WITH SPLINT. PT TOLERATES WELL. IV DC'D. CATH INTACT. PRESSURE DSG APPLIED. PT DC TO HOME VIA WC BY S/O.
== END 2023-11-14 10:34 | disposition home or self-care (01) ==
LOC: MHTC 07:08
DX: E11.22 Type 2 diabetes mellitus with diabetic chronic kidney disease (principal); N18.6 End stage renal disease; Z99.2 Dependence on renal dialysis; Z88.5 Allergy status to narcotic agent; Z88.8 Allergy status to other drugs, medicaments and biological substances; I35.0 Nonrheumatic aortic (valve) stenosis
CPT/HCPCS: 76937; 82947; 93454; 99152; C1769; C1894; J1644; J2250; J3010; J7030; J7050; Q9967

== ENCOUNTER 2024-04-26 12:34 | Inpatient (IN) | payer MEDICARE, BC ==
[~2024-04-26] VITALS: Ht 175.3 cm; Wt 105.6 kg
[2024-04-26 12:50] VITALS: BP 132/63
[2024-04-26] MEDS ORDERED: Benzonatate 100 MG Cap PO PRN (13:35)
[2024-04-26] MEDS ORDERED: Calcium Carbon500 MG PO (13:36)
[2024-04-26 14:19] LABS: BASOPHILS ABSOLUTE AUTO 0.03 K/mm3 (0.00-0.23); BASOPHILS PERCENT AUTO 0 % (0-2); EOSINOPHILS ABSOLUTE AUTO 0.22 K/mm3 (0.00-0.68); EOSINOPHILS PERCENT AUTO 2 % (0-6); Hematocrit 27.6 % (37.0-53.0); Hemoglobin 8.9 g/dL (13.5-17.5); IMMATURE GRAN ABSOLUTE AUTO 0.04 K/mm3 (0.00-0.10); IMMATURE GRAN PERCENT AUTO 0 % (0-1); LYMPHOCYTES ABSOLUTE AUTO 0.41 K/mm3 (0.84-5.20); LYMPHOCYTES PERCENT AUTO 5 % (21-46); MONOCYTES ABSOLUTE AUTO 0.43 K/mm3 (0.16-1.47); MONOCYTES PERCENT AUTO 5 % (4-13); Mean Corpuscular HGB Conc 32.2 g/dL (31.5-36.5); Mean Corpuscular Volume 96 fL (80-100); Mean Platelet Volume 10.5 fL (9.1-12.4); NEUTROPHILS ABSOLUTE AUTO 8.01 K/mm3 (1.96-9.15); NEUTROPHILS PERCENT AUTO 88 % (41-73); Platelet Count 218 K/mm3 (150-400); RDW Coefficient Variation 15.7 % (11.7-14.2); RDW Standard Deviation 54.8 fL (35.1-46.3); Red Blood Cell Count 2.87 M/mm3 (4.30-5.90); White Blood Cell Count 9.14 K/mm3 (4.00-11.30)
[2024-04-26 14:39] LABS: Albumin, Blood 2.3 g/dL (3.4-5.0); Albumin/Globulin Ratio 0.5 (0.8-1.8); Bilirubin, Total 0.5 mg/dL (0.1-1.0); Bun/Creatinine Ratio 11.4 (12.0-20.0); Calcium, Blood 8.2 mg/dL (8.5-10.1); Creatinine, Blood 7.54 mg/dL (0.60-1.20); Globulin, Blood 4.3 g/dL (2.2-4.0); Phosphorus, Blood 3.6 mg/dL (2.5-4.9); Total Protein, Blood 6.6 g/dL (6.4-8.2)
[2024-04-26] MEDS ORDERED: HYDROcodone 5-APAP 325 TAB PO PRN (15:45)
[2024-04-26] MEDS ORDERED: CefTRIAXone Sodium 1,000 MG in NS 100 ML IV SCH (16:00)
[2024-04-26] MEDS ORDERED: Insulin Human Lispro 100 Units/ML 3ML Syringe SC SCH (16:30)
[2024-04-26 16:31] VITALS: BP 154/65
[2024-04-26] MEDS ORDERED: Darbepoetin Alfa In Albumn Sol 40 MCG/0.4 ML SC ONE (16:50)
[2024-04-26] MEDS ORDERED: Calcium Acetate 667 MG Gel Cap PO SCH (17:30)
[2024-04-26] MEDS ORDERED: Ondansetron HCl 2 MG / ML 2ML Vial ONE (17:53)
[2024-04-26] MEDS ORDERED: Ondansetron HCl 2 MG / ML 2ML Vial IV PRN (17:55)
[2024-04-26] MEDS ORDERED: Furosemide 10 MG/ML 4ML Vial IV SCH (18:00)
[2024-04-26 19:55] VITALS: BP 154/78
[2024-04-26] MEDS ORDERED: Famotidine 20 MG Tab PO SCH (21:00)
[2024-04-26] MEDS ORDERED: Cyclobenzaprine HCl 10 MG Tab PO SCH (21:00)
[2024-04-26] MEDS ORDERED: Allopurinol 100 MG Tab PO SCH (21:00)
[2024-04-26] MEDS ORDERED: Calcium Carbonate 500 MG Tab Chew PO SCH (21:00)
[2024-04-26] MEDS ORDERED: Irbesartan 150 MG Tab PO SCH (21:00)
[2024-04-26] MEDS ORDERED: Allopurinol 300 MG Tab PO SCH (21:00)
[2024-04-26] MEDS ORDERED: Gabapentin 100 MG Cap PO SCH (21:00)
[2024-04-26] MEDS ORDERED: Apixaban 5 MG Tab PO SCH (21:00)
[2024-04-27] VITALS: BP 128/60
[2024-04-27 05:02] VITALS: BP 155/71
--- NOTE | 2024-04-27 05:13 | NUR ---
SHIFT SUMMARY PT A&O X4, ABLE TO MAKE NEEDS KNOWN. NO ACUTE EVENTS THIS SHIFT. PT IS INDEPENDENT IN ROOM. VSS, AFEBRILE, SPO2 >92% RA. LUNGS DIMINISHED. PT HAS PERSISTENT COUGH. PT HAS HOME CPAP AT BEDSIDE. PD RUNNING T/O SHIFT. PT DENIES CP OR WORSENING SOB. HE IS RESTING QUIETLY IN BED, CALL LIGHT WITHIN REACH, BREATHING EVEN AND UNLABORED.
[2024-04-27 05:31] LABS: BASOPHILS ABSOLUTE AUTO 0.02 K/mm3 (0.00-0.23); BASOPHILS PERCENT AUTO 0 % (0-2); EOSINOPHILS PERCENT AUTO 4 % (0-6); Hematocrit 26.1 % (37.0-53.0); Hemoglobin 8.2 g/dL (13.5-17.5); IMMATURE GRAN ABSOLUTE AUTO 0.04 K/mm3 (0.00-0.10); IMMATURE GRAN PERCENT AUTO 1 % (0-1); LYMPHOCYTES ABSOLUTE AUTO 0.36 K/mm3 (0.84-5.20); LYMPHOCYTES PERCENT AUTO 5 % (21-46); MONOCYTES ABSOLUTE AUTO 0.47 K/mm3 (0.16-1.47); MONOCYTES PERCENT AUTO 6 % (4-13); Mean Corpuscular HGB 30.4 pg (26.0-34.0); Mean Corpuscular HGB Conc 31.4 g/dL (31.5-36.5); Mean Corpuscular Volume 97 fL (80-100); NEUTROPHILS ABSOLUTE AUTO 6.38 K/mm3 (1.96-9.15); NEUTROPHILS PERCENT AUTO 84 % (41-73); Platelet Count 200 K/mm3 (150-400); RDW Coefficient Variation 15.4 % (11.7-14.2); RDW Standard Deviation 53.7 fL (35.1-46.3); White Blood Cell Count 7.57 K/mm3 (4.00-11.30)
[2024-04-27 05:44] LABS: International Normalized Ratio 1.12; Prothrombin Time Results 11.9 Sec (9.7-11.5)
[2024-04-27 06:02] LABS: Albumin, Blood 2.1 g/dL (3.4-5.0); Albumin/Globulin Ratio 0.5 (0.8-1.8); Bilirubin, Total 0.5 mg/dL (0.1-1.0); Creatinine, Blood 7.38 mg/dL (0.60-1.20); Globulin, Blood 3.9 g/dL (2.2-4.0); Phosphorus, Blood 4.2 mg/dL (2.5-4.9); Potassium, Blood 3.4 mmol/L (3.5-5.5)
[2024-04-27 06:43] LABS: BASOPHILS PERCENT MAN 0 % (0-2); EOSINOPHILS ABSOLUTE MAN 0.15 K/mm3 (0.00-0.68); EOSINOPHILS PERCENT MAN 2 % (0-6); LYMPHOCYTES ABSOLUTE MAN 0.22 K/mm3 (0.84-5.20); LYMPHOCYTES PERCENT MAN 3 % (21-46); MONOCYTES ABSOLUTE MAN 0.22 K/mm3 (0.16-1.47); MONOCYTES PERCENT MAN 3 % (4-13); NEUTROPHILS ABSOLUTE MAN 6.96 K/mm3 (1.96-9.15); SEG NEUTROPHILS PERCENT MAN 92 % (41-73); TOTAL CELLS COUNTED 100
[2024-04-27] MEDS ORDERED: Atorvastatin 10 MG Tab PO SCH (09:00)
[2024-04-27] MEDS ORDERED: Heparin Sodium,Porcine 5,000 UNIT/0.5 ML SDV SC SCH (09:00)
[2024-04-27] MEDS ORDERED: Furosemide 10 MG/ML 4ML Vial IV SCH (09:00)
[2024-04-27] MEDS ORDERED: CO ENZYME Q10 PO SCH (09:00)
[2024-04-27] MEDS ORDERED: Azithromycin 250 MG Tab PO SCH (09:00)
[2024-04-27] MEDS ORDERED: Carvedilol 25 MG Tab PO SCH (09:00)
[2024-04-27] MEDS ORDERED: Cholecalciferol 1000 Unit Tablet (=25MCG) PO SCH (09:00)
[2024-04-27] MEDS ORDERED: Multivitamins 1 Tab PO SCH (09:00)
[2024-04-27] MEDS ORDERED: Insulin Glargine-Yfgn 100 Unit/mL 3 ML SYR SC SCH (09:00)
[2024-04-27 11:30] VITALS: BP 113/60
[2024-04-27] MEDS ORDERED: Potassium Chloride 10 Meq Tablet SA PO ONE (12:50)
[2024-04-27] MEDS ORDERED: Sennosides 8.6 MG Tab PO SCH (14:25)
[2024-04-27 15:14] VITALS: BP 131/63
--- NOTE | 2024-04-27 15:40 | NUR ---
Pt is resting comfortably, is at the bedside. Occasional dry cough, but not persistent. LYing in bed, no dyspnea, nor hypxia. No shortness of breath noted at rest.
--- NOTE | 2024-04-27 18:38 | NUR ---
Spoke with Dr. Khanna re: pt's concerns for his low blood pressures at home and the medicatons which he takes. pt says he stopped taking Irbesartan. Reviewed the pt's blood pressures from today and current medication list. New orders recieved to d/c the Irbesartan and minoxidil. Updated the pt and his .
[2024-04-27 19:42] VITALS: BP 163/70
--- NOTE | 2024-04-27 21:12 | NUR ---
CONFIRMED WITH PRIMARY RN FOR DAYSNISHA CHAVEZ TO CONFIRM 1700 DOSE OF METOPROLOL WAS NOT GIVEN. SHE STATES PER DOWNTIME CHARTING 0800 DOSE WAS GIVING TO PT @ 0820 IN PAPER DEC, 1700 DOSE WAS NOT GIVEN AT ALL. ORDER PLACED FOR EVENING DOSE OF METOPROLOL X1 TO ENSURE PT RECEIVED 2ND DOSE TODAY PER WRITTEN ORDERS.
[2024-04-27 23:23] VITALS: BP 139/56
[2024-04-28 03:17] VITALS: BP 154/63
[2024-04-28 04:19] LABS: BASOPHILS ABSOLUTE AUTO 0.03 K/mm3 (0.00-0.23); BASOPHILS PERCENT AUTO 0 % (0-2); EOSINOPHILS ABSOLUTE AUTO 0.37 K/mm3 (0.00-0.68); EOSINOPHILS PERCENT AUTO 5 % (0-6); Hematocrit 25.5 % (37.0-53.0); Hemoglobin 8.1 g/dL (13.5-17.5); IMMATURE GRAN ABSOLUTE AUTO 0.04 K/mm3 (0.00-0.10); IMMATURE GRAN PERCENT AUTO 1 % (0-1); LYMPHOCYTES ABSOLUTE AUTO 0.36 K/mm3 (0.84-5.20); LYMPHOCYTES PERCENT AUTO 5 % (21-46); MONOCYTES PERCENT AUTO 7 % (4-13); Mean Corpuscular HGB 30.5 pg (26.0-34.0); Mean Corpuscular HGB Conc 31.8 g/dL (31.5-36.5); Mean Corpuscular Volume 96 fL (80-100); Mean Platelet Volume 9.7 fL (9.1-12.4); NEUTROPHILS ABSOLUTE AUTO 5.77 K/mm3 (1.96-9.15); NEUTROPHILS PERCENT AUTO 82 % (41-73); Platelet Count 195 K/mm3 (150-400); RDW Coefficient Variation 15.4 % (11.7-14.2); RDW Standard Deviation 53.4 fL (35.1-46.3); Red Blood Cell Count 2.66 M/mm3 (4.30-5.90); White Blood Cell Count 7.07 K/mm3 (4.00-11.30)
[2024-04-28 04:37] LABS: Alanine Aminotransfer (ALT/SGP 16 U/L (12-78); Albumin/Globulin Ratio 0.5 (0.8-1.8); Alk Phos 73 U/L (50-136); Anion Gap 13 mmol/L (3-11); Aspartate Aminotrans (AST/SGOT 9 U/L (12-37); Bilirubin, Total 0.4 mg/dL (0.1-1.0); Blood Urea Nitrogen 74 mg/dL (8-24); Bun/Creatinine Ratio 10.2 (12.0-20.0); CO2, Blood 29 mmol/L (21-32); Chloride, Blood 101 mmol/L (98-108); Creatinine, Blood 7.29 mg/dL (0.60-1.20); Globulin, Blood 3.8 g/dL (2.2-4.0); Glomerular Filtration Rate 7 (60-); Glucose, Blood 163 mg/dL (70-99); Phosphorus, Blood 3.9 mg/dL (2.5-4.9); Potassium, Blood 3.4 mmol/L (3.5-5.5); Sodium, Blood 140 mmol/L (136-145); Total Protein, Blood 5.8 g/dL (6.4-8.2)
--- NOTE | 2024-04-28 05:06 | NUR ---
SHIFT SUMMARY PT A&O X4, ABLE TO MAKE NEEDS KNOWN. NO ACUTE EVENTS THIS SHIFT. PT IS INDEPENDENT IN ROOM. VSS, AFEBRILE, SPO2 >92% RA. LUNGS DIMINISHED. PT HAS PERSISTENT COUGH. PT HAS HOME CPAP AT BEDSIDE. PD RUNNING T/O SHIFT. PT DENIES CP OR WORSENING SOB. ELIQUIS CONTINUES TO BE HELD DUE TO POSSIBLE THORACENTESIS ON 04/28. HE IS RESTING QUIETLY IN BED, CALL LIGHT WITHIN REACH, BREATHING EVEN AND UNLABORED.
--- NOTE | 2024-04-28 07:00 | NUR ---
ASSUMPTION OF CARE PT IS A&OX4 WITH PLEASANT AFFECT. HE IS ON RA. SINUS RHTYHM ON MONITOR. HE IS CONNECTED TO PD. BED IN LOW POSITION, CALL LIGHT WITHIN REACH. SEE SHIFT ASSESSMENT.
[2024-04-28 08:02] VITALS: BP 158/67
[2024-04-28] MEDS ORDERED: CO ENZYME Q10 PO SCH (09:00)
[2024-04-28] MEDS ORDERED: Sennosides 8.6 MG Tab PO SCH (09:00)
[2024-04-28] MEDS ORDERED: Potassium Chloride 10 Meq Tablet SA PO ONE (09:35)
[2024-04-28] MEDS ORDERED: Morphine Sulfate 4 MG/1 ML Injection IV ONE (10:20)
--- NOTE | 2024-04-28 10:30 | NUR ---
UPDATE DR PEREZ AT BEDSIDE FOR THORACENTESIS. PT TOLERATED WELL. FLUID SAMPLES WALKED TO LAB. LAB ORDERS PLACED AND CHEST XRAY.
[2024-04-28 10:36] VITALS: BP 116/57
[2024-04-28 11:17] LABS: Automated BF RBC Count 0.077 M/mm3 (0-0); Automated BF WBC Count 0.373 K/mm3 (0-999)
[2024-04-28 11:18] LABS: Body Fluid WBC Count 373 /mm3 (0-999); RBC Count, Body Fluid 77000 /mm3 (0-0)
--- NOTE | 2024-04-28 11:18 | NUR ---
UPDATE DR PEREZ AND DR VARELA ROUNDED. PLAN FOR PT TO DISCHARGE THIS AFTERNOON. PT MAY TAKE NIGHT TIME DOSE OF ELIQUIS PER DR PEREZ.
[2024-04-28 11:30] LABS: Albumin, Body Fluid 1.7 g/dL; Glucose, Body Fluid 150 mg/dL
[2024-04-28 11:35] LABS: Creatinine, Body Fluid 7.58 mg/dL; Lactate Dehydrogenase, Body Fl 178 U/L; Protein, Body Fluid 3.7 g/dL
[2024-04-28 11:45] VITALS: BP 144/63
[2024-04-28 11:57] LABS: Total Cell Count, Body Fluid 100
[2024-04-28 11:58] LABS: Appearance, Body Fluid Cloudy (Clear); Color, Body Fluid Red (None-Yellow)
[2024-04-28] MEDS ORDERED: AZIT500 PO (12:41)
[2024-04-28] MEDS ORDERED: CYCL10 PO (12:43)
--- NOTE | 2024-04-28 14:09 | NUR ---
DISCHARGE PT PROVIDED DISCHARGE PAPERS AND DISCHARGE EDUCATION. PT VERBALIZES UNDERSTANDING OF INSTRUCTIONS AND THAT PRESCRIPTIONS ARE AT [facility]. PT AND PT'S SPOUSE COLLECTED ALL BELONGINGS. HOME MEDICATION BOTTLE GIVEN TO PT. TAPER/FINISHER NOTIFIED OF DISCHARGE. PT DENIES WHEELCHAIR RIDE TO VEHICLE. [facility] ACCOMPANIED PT TO VEHICLE AT 1355.
[2024-04-28] MEDS ORDERED: AMOCLA250S PO (14:49)
== END 2024-04-28 14:01 | disposition home or self-care (01) | DRG 186 ==
LOC: PCU 12:34
PROVIDERS: Family Medicine; Internal Medicine; Student in an Organized Health Care Education/Training Program; ADMIT Hospitalist
PROC: 0W993ZZ Drainage of Right Pleural Cavity, Percutaneous Approach (ICD-10-PCS; principal; 2024-04-28)
DX: J90 Pleural effusion, not elsewhere classified (principal); N18.6 End stage renal disease; I13.2 Hypertensive heart and chronic kidney disease with heart failure and with stage 5 chronic kidney disease, or end stage renal disease; I50.32 Chronic diastolic (congestive) heart failure; J98.19 Other pulmonary collapse; E11.22 Type 2 diabetes mellitus with diabetic chronic kidney disease; M54.9 Dorsalgia, unspecified; I25.10 Atherosclerotic heart disease of native coronary artery without angina pectoris; E78.5 Hyperlipidemia, unspecified; E87.70 Fluid overload, unspecified; R19.5 Other fecal abnormalities; D63.1 Anemia in chronic kidney disease; E87.6 Hypokalemia; G89.29 Other chronic pain; E66.9 Obesity, unspecified; R01.1 Cardiac murmur, unspecified; I35.0 Nonrheumatic aortic (valve) stenosis; N62 Hypertrophy of breast; G47.33 Obstructive sleep apnea (adult) (pediatric); R05.3 Chronic cough; E86.9 Volume depletion, unspecified; Z99.2 Dependence on renal dialysis; Z79.01 Long term (current) use of anticoagulants; Z79.4 Long term (current) use of insulin; Z68.36 Body mass index [BMI] 36.0-36.9, adult
CPT/HCPCS: 36415; 71045; 71046; 71250; 80053; 82042; 82570; 82945; 82947; 83615; 83735; 84100; 84145; 84157; 85025; 85610; 88108; 88305; 89051; 96374; 96375; 96376; A9270; G0378; J0696; J0881; J1815; J1940; J2270; J2405

== ENCOUNTER 2024-07-03 10:26 | Day surgery (SDC) | payer MEDICARE, BC ==
[~2024-07-03] VITALS: Ht 175.3 cm; Wt 100.8 kg
[~2024-07-03 10:26] MED LIST changes: +AMOCLA250S PO; +AZIT500 PO; +Calcium Carbon500 MG PO; +Lactated Ringer's 1,000 ML IV ONE
[2024-07-03] MEDS ORDERED: ELIQUIS5 M2 (10:58)
[2024-07-03] MEDS ORDERED: MIDODRINE HCL10 M6 (10:59)
[2024-07-03] MEDS ORDERED: propofoL 50 ML IV ONE ×2 (11:03→12:05)
[2024-07-03 11:20] LABS: Bun/Creatinine Ratio 7.7 (12.0-20.0); Calcium, Blood 8.7 mg/dL (8.5-10.1); Creatinine, Blood 6.48 mg/dL (0.60-1.20); Potassium, Blood 3.3 mmol/L (3.5-5.5)
[2024-07-03] MEDS ORDERED: NS 500 ML IV ONE (11:23)
--- NOTE | 2024-07-03 11:42 | NUR ---
07/03/24 1142 Samira Lemus BLOOD GLUCOSE 78 AT 1106. AWARE, TAKEN BY [facility].[email or web address].
[2024-07-03 13:23] VITALS: BP 90/68
== END 2024-07-03 13:20 | disposition home or self-care (01) ==
LOC: ORSCSDS 10:26
PROVIDERS: Internal Medicine Gastroenterology
PROC: 0DBM8ZX Excision of Descending Colon, Via Natural or Artificial Opening Endoscopic, Diagnostic (ICD-10-PCS; principal; 2024-07-03 12:00)
PROC: 0DB78ZX Excision of Stomach, Pylorus, Via Natural or Artificial Opening Endoscopic, Diagnostic (ICD-10-PCS; principal; 2024-07-03 12:00)
PROC: 0DBL8ZX Excision of Transverse Colon, Via Natural or Artificial Opening Endoscopic, Diagnostic (ICD-10-PCS; principal; 2024-07-03 12:00)
DX: D50.9 Iron deficiency anemia, unspecified (principal); R19.5 Other fecal abnormalities; Z86.010 Personal history of colon polyps; K29.70 Gastritis, unspecified, without bleeding; D12.3 Benign neoplasm of transverse colon; K63.5 Polyp of colon; Z98.84 Bariatric surgery status; G47.33 Obstructive sleep apnea (adult) (pediatric); Z86.718 Personal history of other venous thrombosis and embolism; Z79.01 Long term (current) use of anticoagulants; E11.22 Type 2 diabetes mellitus with diabetic chronic kidney disease; I12.0 Hypertensive chronic kidney disease with stage 5 chronic kidney disease or end stage renal disease; N18.6 End stage renal disease; Z79.4 Long term (current) use of insulin; Z79.899 Other long term (current) drug therapy
CPT/HCPCS: 80048; 82947; 88305; 88342; J2704; J7120

== ENCOUNTER → 2024-07-23 | Outpatient (CLI) | payer MEDICARE, BC ==
[~2024-07-23] MED LIST changes: +ELIQUIS5 M2; -Lactated Ringer's 1,000 ML IV ONE; +MIDODRINE HCL10 M6
[2024-07-23 16:28] LABS: Source, Urine Voided
[2024-07-23 19:09] LABS: Bacteria Many /hpf; Hyaline Casts 0-2 /lpf (0-2); Mucus Light (0-Heavy); Squamous Epithelial Cells Few /hpf (Few); Yeast/Fungi Urine Many /hpf
== END | disposition home or self-care (01) ==
LOC: LAB SHORT 16:26 → LAB 16:26
PROVIDERS: Hospitalist
DX: R30.0 Dysuria (principal)
CPT/HCPCS: 81015; 87086

== ENCOUNTER 2025-04-05 17:57 | Inpatient (IN) | payer MEDICARE, BC ==
[~2025-04-05] VITALS: Ht 167.6 cm; Wt 98.2 kg
[~2025-04-05 17:57] MED LIST changes: -MIDODRINE HCL10 M6; +MIDODRINE HCL10 M6 PO
[2025-04-05 18:31] LABS: BASOPHILS ABSOLUTE AUTO 0.03 K/mm3 (0.00-0.23); BASOPHILS PERCENT AUTO 0 % (0-2); EOSINOPHILS ABSOLUTE AUTO 0.18 K/mm3 (0.00-0.68); EOSINOPHILS PERCENT AUTO 2 % (0-6); Hemoglobin 9.2 g/dL (13.5-17.5); IMMATURE GRAN ABSOLUTE AUTO 0.08 K/mm3 (0.00-0.10); IMMATURE GRAN PERCENT AUTO 1 % (0-1); LYMPHOCYTES ABSOLUTE AUTO 0.51 K/mm3 (0.84-5.20); LYMPHOCYTES PERCENT AUTO 4 % (21-46); MONOCYTES ABSOLUTE AUTO 0.56 K/mm3 (0.16-1.47); MONOCYTES PERCENT AUTO 5 % (4-13); Mean Corpuscular HGB 30.2 pg (26.0-34.0); Mean Corpuscular HGB Conc 32.9 g/dL (31.5-36.5); Mean Corpuscular Volume 92 fL (80-100); Mean Platelet Volume 9.8 fL (9.1-12.4); NEUTROPHILS PERCENT AUTO 89 % (41-73); Platelet Count 278 K/mm3 (150-400); RDW Coefficient Variation 15.1 % (11.7-14.2); RDW Standard Deviation 50.9 fL (35.1-46.3); Red Blood Cell Count 3.05 M/mm3 (4.30-5.90); White Blood Cell Count 12.16 K/mm3 (4.00-11.30)
[2025-04-05 19:15] LABS: Albumin, Blood 2.1 g/dL (3.4-5.0); Albumin/Globulin Ratio 0.4 (0.8-1.8); Bilirubin, Total 0.4 mg/dL (0.1-1.0); Bun/Creatinine Ratio 8.9 (12.0-20.0); Creatinine, Blood 8.74 mg/dL (0.60-1.20); Globulin, Blood 5.2 g/dL (2.2-4.0); Potassium, Blood 3.5 mmol/L (3.5-5.5); Total Protein, Blood 7.3 g/dL (6.4-8.2)
[2025-04-05 20:51] LABS: International Normalized Ratio 1.17; Prothrombin Time Results 12.7 Sec (9.7-11.5)
[2025-04-05] MEDS ORDERED: Acetaminophen 325 MG TABLET PO PRN (23:15)
[2025-04-05] MEDS ORDERED: Ondansetron HCl 2 MG / ML 2ML Vial IV PRN (23:15)
[2025-04-06] MEDS ORDERED: Dose Adjust by Pharmacy XX STA (01:08)
[2025-04-06] MEDS ORDERED: Heparin Sodium,Porcine/0.5 NS 500 ML IV SCH (01:10)
[2025-04-06 01:45] LABS: BASOPHILS ABSOLUTE AUTO 0.03 K/mm3 (0.00-0.23); BASOPHILS PERCENT AUTO 0 % (0-2); EOSINOPHILS ABSOLUTE AUTO 0.33 K/mm3 (0.00-0.68); EOSINOPHILS PERCENT AUTO 3 % (0-6); Hematocrit 28.7 % (37.0-53.0); Hemoglobin 9.4 g/dL (13.5-17.5); IMMATURE GRAN ABSOLUTE AUTO 0.07 K/mm3 (0.00-0.10); IMMATURE GRAN PERCENT AUTO 1 % (0-1); LYMPHOCYTES ABSOLUTE AUTO 0.39 K/mm3 (0.84-5.20); LYMPHOCYTES PERCENT AUTO 3 % (21-46); MONOCYTES ABSOLUTE AUTO 0.63 K/mm3 (0.16-1.47); MONOCYTES PERCENT AUTO 5 % (4-13); Mean Corpuscular HGB 30.6 pg (26.0-34.0); Mean Corpuscular HGB Conc 32.8 g/dL (31.5-36.5); Mean Corpuscular Volume 94 fL (80-100); Mean Platelet Volume 9.1 fL (9.1-12.4); NEUTROPHILS ABSOLUTE AUTO 11.01 K/mm3 (1.96-9.15); NEUTROPHILS PERCENT AUTO 88 % (41-73); Platelet Count 275 K/mm3 (150-400); RDW Coefficient Variation 15.1 % (11.7-14.2); RDW Standard Deviation 51.6 fL (35.1-46.3); Red Blood Cell Count 3.07 M/mm3 (4.30-5.90); White Blood Cell Count 12.46 K/mm3 (4.00-11.30)
[2025-04-06 01:58] VITALS: BP 161/79
[2025-04-06 02:13] LABS: Albumin, Blood 2.3 g/dL (3.4-5.0); Albumin/Globulin Ratio 0.5 (0.8-1.8); Bilirubin, Total 0.4 mg/dL (0.1-1.0); Bun/Creatinine Ratio 9.6 (12.0-20.0); Calcium, Blood 8.7 mg/dL (8.5-10.1); Creatinine, Blood 8.76 mg/dL (0.60-1.20); Globulin, Blood 5.1 g/dL (2.2-4.0); Potassium, Blood 3.3 mmol/L (3.5-5.5); Total Protein, Blood 7.4 g/dL (6.4-8.2)
--- NOTE | 2025-04-06 02:17 | NUR ---
ARRIVAL TO UNIT PT ARRIVES TO [facility] AT 0100. REPORT RECEIVED FROM CONTINUOUS CONVEYOR SCREEN DRIER. HE IS ABLE TO TRANSFER HIMSELF FROM [facility] TO HOSPITAL BED, BUT EXHIBITED WEAKNESS. PT INSTRUCTED TO NOT ATTEMPT TO AMBULATE WITHOUT USING CALL LIGHT AND HAVING STAFF PRESENT FOR ASSISTANCE. AND [id number] AT BEDSIDE. HE IS ALERT AND ORIENTED, PLEASANT, COOPERATIVE WITH CARE, VERBALIZES NEEDS. ON CONTINUOUS CARDIAC MONITORING, NSR, HR IN 80'S, ENDORSES CHEST PAIN THAT RANGES FROM SHARP AND STABBING TO DULL AND ACHING WITH INHALATION. ON RA, SATS ABOVE 95%. RA AT BASELINE. BREATHING IS SHALLOW AND UNLABORED. PT USES CPAP AT BASELINE, HOME CPAP IN THE ROOM. NONPRODUCTIVE COUGH. PT OF DR GREEN. PT RECEIVES AT HOME PERITONEAL DIALYSIS EVERY EVENING. FAMILY IS CONCERNED THAT HE DID NOT RECEIVE HIS DIALYSIS FROM LAST NIGHT. CALL PLACED TO WEB DESIGN INSTRUCTOR STRANDING MACHINE OPERATOR, MESSAGE LEFT. PT NPO AT THIS TIME PENDING CARDIOLOGY CONSULT. PT REPORTS THAT HE HAS VERY LITTLE URINE OUTPUT AT BASELINE. CBGS Q6.
[2025-04-06] MEDS ORDERED: HYDROcodone 5-APAP 325 TAB PO PRN (02:35)
[2025-04-06] MEDS ORDERED: CefTRIAXone Sodium 1,000 MG in NS 100 ML IV SCH (03:02)
[2025-04-06] MEDS ORDERED: Doxycycline Hyclate 100 MG in Dextrose 5% 250 ML IV SCH (03:04)
[2025-04-06 04:34] VITALS: BP 131/68
[2025-04-06] MEDS ORDERED: Insulin Regular 100 UNIT/ML 10ML Vial SC SCH (06:00)
--- NOTE | 2025-04-06 07:20 | NUR ---
ASSUMPTION NOTE: THIS RN TO ASSUME CARE OF PT. PATIENT IS AWAKE ON HIS HOME CPAP MACHINE. PT IS AWARE WE WILL BE CALLING NEPHROLOGY TO GET THE PLAN REGARDING HIS PERIOTNEAL DIALYSIS TODAY. FAMILY TO COME IN TODAY. HAS CALL LIGHT WITHIN REACH, BED IN LOWEST POSITION & STATING NOTHING ELSE IS NEEDED AT THIS TIME.
[2025-04-06 08:08] VITALS: BP 105/64
--- NOTE | 2025-04-06 08:21 | NUR ---
COTACTED: THIS RN CALLED NEPHRO MD REGARDING PLAN FOR HIS PERIOTENAL DIALYSIS. MD DID NOT ANSWER,VOICEMAIL WAS LEFT TO CALL BACK WHEN ABLE. CHARGE NURSE WAS NOTIFIED.
[2025-04-06] MEDS ORDERED: Calcium Acetate 667 MG Gel Cap PO SCH (08:30)
--- NOTE | 2025-04-06 08:38 | NUR ---
MD ROUNDED: CARDIOLGOST ROUNDED, SPOKE WITH PT AND LOOKED AT EKG RESULTS. MD GAVE VERBAL ORDER TO STOP THE HEPARIN AND FOR PT TO FOLLOW UP WITH MIYA GUTIÉRREZ.
[2025-04-06] MEDS ORDERED: Potassium Chloride 10 Meq Tablet SA PO ONE (08:50)
[2025-04-06] MEDS ORDERED: Atorvastatin 10 MG Tab PO SCH (09:00)
[2025-04-06] MEDS ORDERED: Furosemide 10 MG/ML 4ML Vial IV SCH (09:00)
[2025-04-06] MEDS ORDERED: Multivitamins 1 Tab PO SCH (09:00)
[2025-04-06] MEDS ORDERED: Cholecalciferol 1000 Unit Tablet (=25MCG) PO SCH (09:00)
[2025-04-06] MEDS ORDERED: Calcium Carbonate 500 MG Tab Chew PO SCH (09:00)
[2025-04-06] MEDS ORDERED: Lactobacil 2-S.Thermo-Bifido 1 1 Cap PO SCH (09:00)
[2025-04-06] MEDS ORDERED: Insulin Glargine-Yfgn 100 Unit/mL 3 ML SYR SC SCH (09:00)
--- NOTE | 2025-04-06 09:02 | NUR ---
GENESIS CONSULTED: CHARGE NURSE WAS ABLE TO GET AHOLD OF A NEPHRO AND GAVE VERBAL ORDER TO REPLACE POTASSIUM & PT TO GET PERITONEAL DIALYSIS KHUSHBU SCHEDULED.
--- NOTE | 2025-04-06 10:14 | NUR ---
ROUNDED: NEPHRO ROUNDED AND CHATTED WITH PT. PT AWARE THAT PERIOTONEAL DIALYSIS WILL BE DONE THIS EVENING. HIS POTASSIUM WAS REPLACED THIS MORNING.
--- NOTE | 2025-04-06 10:47 | NUR ---
ROUNDED: MD MENA ROUNDED AND SPOKE WITH PT. AWARE THAT CARDIOLOGY SIGNED OFF AND RULED TOWARDS THE SIDE OF PERICARDITIS. AND POSSIBLY LOOKING AT DISCHARGE ONCE THE ECHO RESULTS GET BACK.
[2025-04-06 12:04] VITALS: BP 131/71
[2025-04-06] MEDS ORDERED: Acetaminophen650 M1 PO (13:31)
[2025-04-06] MEDS ORDERED: VISBIOME 112.51 EACH PO (13:31)
[2025-04-06] MEDS ORDERED: CEPH250A PO (13:32)
--- NOTE | 2025-04-06 15:04 | NUR ---
DISCHARGE NOTE: PATIENT IS ALERT AND ORIETNED X4 & ABLE TO MAKE NEEDS KNOWN. SATTING >92% ON ROOM AIR. TELE TAKEN OFF, IV TAKEN OUT & POWERGLIDE REMOVED WELL. PT HAS ALL DISCHARGE INFORMATION AND UNDERSTOOD TO FOLLOW UP WITH PRIMARY,NEPHRO & CARDIO WITHIN 1WEEK FOR THEM ALL. NEW MEDICATIONS WERE SENT TO [facility] ON [address] PER REQUEST. THIS RN WENT OVER DISCHARGE INFORMATION WITH WELL. WAS WHEELED OUT AND MET AT FRONT ENTRANCE.
[2025-04-06] MEDS ORDERED: Allopurinol 300 MG Tab PO SCH (21:00)
[2025-04-06] MEDS ORDERED: Gabapentin 100 MG Cap PO SCH (21:00)
[2025-04-06] MEDS ORDERED: Cyclobenzaprine HCl 10 MG Tab PO SCH (21:00)
== END 2025-04-06 14:55 | disposition home or self-care (01) | DRG 314 ==
LOC: ER 17:57 → PCU 23:11
PROVIDERS: Student in an Organized Health Care Education/Training Program; ADMIT Student in an Organized Health Care Education/Training Program
PROC: 5A09357 Assistance with Respiratory Ventilation, Less than 24 Consecutive Hours, Continuous Positive Airway Pressure (ICD-10-PCS; principal; 2025-04-06)
DX: I30.9 Acute pericarditis, unspecified (principal); N18.6 End stage renal disease; E87.1 Hypo-osmolality and hyponatremia; I13.2 Hypertensive heart and chronic kidney disease with heart failure and with stage 5 chronic kidney disease, or end stage renal disease; I50.32 Chronic diastolic (congestive) heart failure; I35.0 Nonrheumatic aortic (valve) stenosis; E11.22 Type 2 diabetes mellitus with diabetic chronic kidney disease; E87.6 Hypokalemia; D63.1 Anemia in chronic kidney disease; I25.10 Atherosclerotic heart disease of native coronary artery without angina pectoris; G47.33 Obstructive sleep apnea (adult) (pediatric); E78.5 Hyperlipidemia, unspecified; R05.9 Cough, unspecified; Z96.652 Presence of left artificial knee joint; Z99.2 Dependence on renal dialysis; Z86.718 Personal history of other venous thrombosis and embolism; Z86.711 Personal history of pulmonary embolism; Z79.01 Long term (current) use of anticoagulants; Z88.8 Allergy status to other drugs, medicaments and biological substances; Z88.6 Allergy status to analgesic agent; Z79.4 Long term (current) use of insulin; Z98.84 Bariatric surgery status
CPT/HCPCS: 36415; 71046; 80053; 82947; 83690; 83735; 83880; 84145; 84484; 85025; 85610; 85730; 93005; 93010; 93306; 94762; 99285-25; A9270; C1751; J0696; J1644; J1815; J1938; J7060

== ENCOUNTER 2025-04-18 15:57 | Inpatient (IN) | payer MEDICARE, BC ==
[~2025-04-18] VITALS: Ht 175.3 cm; Wt 102.6 kg
[~2025-04-18 15:57] MED LIST changes: +Acetaminophen650 M1 PO; +CEPH250A PO; +VISBIOME 112.51 EACH PO
[2025-04-18 17:09] LABS: BASOPHILS ABSOLUTE AUTO 0.02 K/mm3 (0.00-0.23); BASOPHILS PERCENT AUTO 0 % (0-2); EOSINOPHILS ABSOLUTE AUTO 0.17 K/mm3 (0.00-0.68); EOSINOPHILS PERCENT AUTO 1 % (0-6); Hematocrit 28.1 % (37.0-53.0); Hemoglobin 9.1 g/dL (13.5-17.5); IMMATURE GRAN ABSOLUTE AUTO 0.22 K/mm3 (0.00-0.10); IMMATURE GRAN PERCENT AUTO 2 % (0-1); LYMPHOCYTES ABSOLUTE AUTO 0.53 K/mm3 (0.84-5.20); LYMPHOCYTES PERCENT AUTO 4 % (21-46); MONOCYTES ABSOLUTE AUTO 0.55 K/mm3 (0.16-1.47); MONOCYTES PERCENT AUTO 5 % (4-13); Mean Corpuscular HGB Conc 32.4 g/dL (31.5-36.5); Mean Corpuscular Volume 96 fL (80-100); NEUTROPHILS ABSOLUTE AUTO 10.74 K/mm3 (1.96-9.15); NEUTROPHILS PERCENT AUTO 88 % (41-73); NRBC ABSOLUTE 0.00 K/mm3 (0.00-0.02); NRBC Auto 0.0 /100 WBC (0.0-0.2); Platelet Count 312 K/mm3 (150-400); RDW Coefficient Variation 16.2 % (11.7-14.2); RDW Standard Deviation 56.4 fL (35.1-46.3)
[2025-04-18 17:22] LABS: Magnesium, Blood 2.2 mg/dL (1.6-2.4)
[2025-04-18 17:23] LABS: Alanine Aminotransfer (ALT/SGP 19.0 U/L (12-78); Albumin, Blood 2.5 g/dL (3.4-5.0); Albumin/Globulin Ratio 0.6 (0.8-1.8); Anion Gap 12.0 mmol/L (3-11); Aspartate Aminotrans (AST/SGOT 19.0 U/L (12-37); Bilirubin, Total 0.4 mg/dL (0.1-1.0); Blood Urea Nitrogen 84.0 mg/dL (8-24); CO2, Blood 26.0 mmol/L (21-32); Calcium, Blood 8.7 mg/dL (8.5-10.1); Chloride, Blood 92.0 mmol/L (98-108); Creatinine, Blood 7.11 mg/dL (0.60-1.20); Globulin, Blood 4.3 g/dL (2.2-4.0); Glucose, Blood 166.0 mg/dL (70-99); Potassium, Blood 3.6 mmol/L (3.5-5.5); Sodium, Blood 126.0 mmol/L (136-145); Total Protein, Blood 6.8 g/dL (6.4-8.2)
[2025-04-18] MEDS ORDERED: Diltiazem HCl 5 MG / ML 5ML Vial IV ONE ×2 (17:45→18:35)
[2025-04-18] MEDS ORDERED: Propofol 10mg/ml 20 ml Vial (Procedural) IV ONE (18:00)
[2025-04-18] MEDS ORDERED: Lidocaine HCl 2% 20 MG/ML 5ML SYR IV ONE (18:00)
[2025-04-18] MEDS ORDERED: Phenylephrine HCl 100 MCG/ML-NS 10MLSYR (1MG/10ML) IV ONE (18:00)
[2025-04-18] MEDS ORDERED: Metoprolol Tartrate 1 MG/ML 5 ML VIAL IV ONE (20:05)
[2025-04-18] MEDS ORDERED: HYDROcodone 5-APAP 325 TAB PO PRN (20:50)
[2025-04-18] MEDS ORDERED: Ondansetron HCl 2 MG / ML 2ML Vial IV PRN (20:50)
[2025-04-18] MEDS ORDERED: Guaifenesin/Dextromethorphan Syrup 5 ML UDC PO PRN (20:50)
[2025-04-18] MEDS ORDERED: Metoprolol Tartrate 1 MG/ML 5 ML VIAL IV PRN ×2 (20:55→21:55)
[2025-04-18 20:57] LABS: C-REACTIVE PROTEIN, EXT RANGE 2.57 mg/dL (0.000-0.300)
[2025-04-18] MEDS ORDERED: Insulin Human Lispro 100 Units/ML 3ML Syringe SC SCH (21:00)
[2025-04-18 21:19] LABS: Thyroid Stimulating Hormone 3.77 uIU/mL (0.360-4.800)
[2025-04-18] MEDS ORDERED: Darbepoetin (Pharmacy Consult) SC SCH (23:45)
[2025-04-19] VITALS (37 sets, daily range): BP systolic 56–116; BP diastolic 40–92
[2025-04-19] MEDS ORDERED: SERT50 PO (01:08)
[2025-04-19] MEDS ORDERED: Prednisone10 MG PO (01:13)
--- NOTE | 2025-04-19 01:58 | NUR ---
Soft pressures with SBP IN 80'S - MD made aware - call if MAP<65 or pt becomes symptomatic.
--- NOTE | 2025-04-19 02:21 | NUR ---
MD notified of SBP in the 70's - sustaining, patient is currently asleep and receiving peritoneal dialysis. per MD - SBP in the 70's ok as long as MAP is 65 or >
[2025-04-19] MEDS ORDERED: NS 1,000 ML IV SCH (03:04)
[2025-04-19] MEDS ORDERED: NS 1,000 ML IV ONE (03:12)
[2025-04-19 04:39] LABS: Hematocrit 23.9 % (37.0-53.0); Hemoglobin 7.6 g/dL (13.5-17.5); Mean Corpuscular HGB Conc 31.8 g/dL (31.5-36.5); Mean Corpuscular Volume 96 fL (80-100); NRBC ABSOLUTE 0.00 K/mm3 (0.00-0.02); NRBC Auto 0.0 /100 WBC (0.0-0.2); Platelet Count 223 K/mm3 (150-400); RDW Coefficient Variation 16.1 % (11.7-14.2); RDW Standard Deviation 56.9 fL (35.1-46.3)
[2025-04-19 05:24] LABS: Albumin, Blood 2.0 g/dL (3.4-5.0); Anion Gap 12 mmol/L (3-11); Blood Urea Nitrogen 91 mg/dL (8-24); CO2, Blood 26 mmol/L (21-32); Calcium, Blood 7.9 mg/dL (8.5-10.1); Chloride, Blood 94 mmol/L (98-108); Creatinine, Blood 7.27 mg/dL (0.60-1.20); Glucose, Blood 115 mg/dL (70-99); Magnesium, Blood 2.3 mg/dL (1.6-2.4); Phosphorus, Blood 5.1 mg/dL (2.5-4.9); Potassium, Blood 3.5 mmol/L (3.5-5.5); Sodium, Blood 128 mmol/L (136-145)
--- NOTE | 2025-04-19 06:52 | NUR ---
SHIFT SUMMARY NO ACUTE EVENTS OVERNIGHT. BP IMPROVING. PT DENIES PAIN, NO ACUTE DISTRESS NOTED. CALL LIGHT AND PERSONAL ITEMS WITHIN REACH.
[2025-04-19] MEDS ORDERED: Amiodarone HCl 450 MG in NS 250 ML IV SCH (08:45)
[2025-04-19] MEDS ORDERED: Amiodarone HCl 150 MG in NS 100 ML IV ONE (08:45)
[2025-04-19] MEDS ORDERED: Insulin Glargine-Yfgn 100 Unit/mL 3 ML SYR SC SCH (09:00)
[2025-04-19] MEDS ORDERED: HYDROcodone 5-APAP 325 TAB PO PRN (09:10)
[2025-04-19] MEDS ORDERED: GuaiFENesin 200 MG IR Tab PO PRN (11:05)
[2025-04-19] MEDS ORDERED: Amiodarone HCl 50 MG / ML 3 ML Amp IV STA (11:40)
[2025-04-19 12:00] LABS: BASOPHILS ABSOLUTE AUTO 0.02 K/mm3 (0.00-0.23); BASOPHILS PERCENT AUTO 0 % (0-2); EOSINOPHILS ABSOLUTE AUTO 0.14 K/mm3 (0.00-0.68); EOSINOPHILS PERCENT AUTO 1 % (0-6); Hematocrit 26.1 % (37.0-53.0); Hemoglobin 8.5 g/dL (13.5-17.5); IMMATURE GRAN ABSOLUTE AUTO 0.16 K/mm3 (0.00-0.10); IMMATURE GRAN PERCENT AUTO 1 % (0-1); LYMPHOCYTES ABSOLUTE AUTO 0.36 K/mm3 (0.84-5.20); LYMPHOCYTES PERCENT AUTO 3 % (21-46); MONOCYTES ABSOLUTE AUTO 0.36 K/mm3 (0.16-1.47); MONOCYTES PERCENT AUTO 3 % (4-13); Mean Corpuscular HGB Conc 32.6 g/dL (31.5-36.5); Mean Corpuscular Volume 95 fL (80-100); NEUTROPHILS ABSOLUTE AUTO 10.56 K/mm3 (1.96-9.15); NEUTROPHILS PERCENT AUTO 91 % (41-73); NRBC ABSOLUTE 0.00 K/mm3 (0.00-0.02); NRBC Auto 0.0 /100 WBC (0.0-0.2); Platelet Count 242 K/mm3 (150-400); RDW Coefficient Variation 16.4 % (11.7-14.2); RDW Standard Deviation 56.9 fL (35.1-46.3)
[2025-04-19] MEDS ORDERED: Darbepoetin Alfa In Albumn Sol 40 MCG/0.4 ML SC SCH (16:00)
--- NOTE | 2025-04-19 16:48 | NUR ---
Cardioversion At bedside for cardioversion. Sedation and airway managed by anesthesia. Dr. Marie at bedside. PT connected to zoll and placed on non rebreather. Time out completed. Pt. sedated per anesthesiologist. Zoll charged to 200j per dr. marie, shock delivered. NSR noted on monitor post shock. Recovery intiated.
[2025-04-19] MEDS ORDERED: Albuterol 2.5 MG/3 ML VIAL INH ONE (17:10)
--- NOTE | 2025-04-19 18:19 | NUR ---
PT IN AFLUTTER HR IN 130-140'S. aFYTER TWO AMIODORONE BOLUSES AND THE DRIP HE DROPED TO 100-120'S. TODAY HE HAS HAD TWO ECHOS, BEEN CARDIOVERTED AND HAD PD STOPPED AND RESTARTED. 12 LEAD AFTER STATED SINUS RAMAN, PT NOW IN 55-60'S HR, BP IS DOING MUCH BETTER. PT RECIEVED A NEB AFTER CARDIOVERSION AND IS BREATHING MUCH BETTER NOW. DIET HAS BEEN REORDERED AND WAITIG ON DINNER.
[2025-04-20] VITALS (13 sets, daily range): BP systolic 98–117; BP diastolic 63–87
[2025-04-20 04:30] LABS: BASOPHILS ABSOLUTE AUTO 0.01 K/mm3 (0.00-0.23); BASOPHILS PERCENT AUTO 0 % (0-2); EOSINOPHILS ABSOLUTE AUTO 0.09 K/mm3 (0.00-0.68); EOSINOPHILS PERCENT AUTO 1 % (0-6); Hematocrit 23.0 % (37.0-53.0); Hemoglobin 7.2 g/dL (13.5-17.5); IMMATURE GRAN ABSOLUTE AUTO 0.12 K/mm3 (0.00-0.10); IMMATURE GRAN PERCENT AUTO 1 % (0-1); LYMPHOCYTES ABSOLUTE AUTO 0.28 K/mm3 (0.84-5.20); LYMPHOCYTES PERCENT AUTO 3 % (21-46); MONOCYTES ABSOLUTE AUTO 0.40 K/mm3 (0.16-1.47); MONOCYTES PERCENT AUTO 5 % (4-13); Mean Corpuscular HGB Conc 31.3 g/dL (31.5-36.5); Mean Corpuscular Volume 97 fL (80-100); NEUTROPHILS ABSOLUTE AUTO 8.04 K/mm3 (1.96-9.15); NEUTROPHILS PERCENT AUTO 90 % (41-73); NRBC ABSOLUTE 0.00 K/mm3 (0.00-0.02); NRBC Auto 0.0 /100 WBC (0.0-0.2); Platelet Count 191 K/mm3 (150-400); RDW Coefficient Variation 16.5 % (11.7-14.2); RDW Standard Deviation 58.1 fL (35.1-46.3)
[2025-04-20 04:57] LABS: Albumin, Blood 2.1 g/dL (3.4-5.0); Anion Gap 13 mmol/L (3-11); Blood Urea Nitrogen 78 mg/dL (8-24); C-REACTIVE PROTEIN, EXT RANGE 3.060 mg/dL (0.000-0.300); CO2, Blood 26 mmol/L (21-32); Calcium, Blood 7.3 mg/dL (8.5-10.1); Chloride, Blood 93 mmol/L (98-108); Creatinine, Blood 6.95 mg/dL (0.60-1.20); Glucose, Blood 387 mg/dL (70-99); Magnesium, Blood 2.3 mg/dL (1.6-2.4); Phosphorus, Blood 6.5 mg/dL (2.5-4.9); Potassium, Blood 3.7 mmol/L (3.5-5.5); Sodium, Blood 128 mmol/L (136-145)
--- NOTE | 2025-04-20 05:56 | NUR ---
SHIFT SUMMARY PT HAS TOLERATED SHIFT WITH NO SIGNIFICANT EVENTS OVERNIGHT. PT IS ALERT AND ORIENTED X4, ABLE TO MOVE ALL EXTREMETIES, NO COMPLAINTS OF CHEST PAIN OR SOB OVERNIGHT. PT CURRENTLY ON CPAP FOR SLEEP AND RESTING COMFORTABLY IN ROOM. VITAL SIGNS OVERNIGHT HAS BEEN STABLE. PT HAD ELEVATED TROPONIN OVERNIGHT, RESULT REPORTED TO NIGHT TIME RESIDENT, NEW ORDERS FOR LABS PLACED. WILL CONTINUE TO MONITOR UNTIL REPORT PASSED TO DAY SHIFT TEAM. CALL LIGHT WITHIN REACH.
[2025-04-20 10:41] LABS: Hematocrit 24.4 % (37.0-53.0); Hemoglobin 7.6 g/dL (13.5-17.5)
[2025-04-20] MEDS ORDERED: NS 250 ML IV PRN (14:35)
[2025-04-20] MEDS ORDERED: Insulin Human Lispro 100 Units/ML 3ML Syringe SC SCH (16:30)
--- NOTE | 2025-04-20 18:02 | NUR ---
SHIFT SUMMARY: PT HAS BEEN A&Ox4, COOPERATIVE W/CARE, ABLE TO MAKE NEEDS KNOWN. PT DENIES SOB, O2 SATS >93% ON RA, HOME CPAP ON SB AT BEDSIDE. PT DENIES CP, SR THIS SHIFT, RATE MOSTLY 60s, TROPONIN LAB BEING TRENDED. PT TOLERATING REG DIET, LITTLE TO NO URINE OUTPUT, DIALYSIS CATHETER TO LLQ. PERITONEAL DIALYSIS MANAGED BY DIALYSIS NURSES. 1 UNIT OF PRBCs INFUSING PER ORDERS. PT HAS BEEN REPOSITIONING HIMSELF, CURRENTLY SITTING AT BEDSIDE VISITING W/ FAMILY, CALL LIGHT WITHIN REACH.
[2025-04-20 20:01] LABS: Hematocrit 28.1 % (37.0-53.0); Hemoglobin 9.0 g/dL (13.5-17.5)
[2025-04-20] MEDS ORDERED: Insulin Glargine-Yfgn 100 Unit/mL 3 ML SYR SC ONE (22:00)
[2025-04-21 00:36] VITALS: BP 111/72
[2025-04-21] MEDS ORDERED: Insulin Human Lispro 100 Units/ML 3ML Syringe SC ONE (00:55)
[2025-04-21 04:13] LABS: BASOPHILS ABSOLUTE AUTO 0.02 K/mm3 (0.00-0.23); BASOPHILS PERCENT AUTO 0 % (0-2); EOSINOPHILS ABSOLUTE AUTO 0.16 K/mm3 (0.00-0.68); EOSINOPHILS PERCENT AUTO 1 % (0-6); Hematocrit 28.3 % (37.0-53.0); Hemoglobin 9.2 g/dL (13.5-17.5); IMMATURE GRAN ABSOLUTE AUTO 0.16 K/mm3 (0.00-0.10); IMMATURE GRAN PERCENT AUTO 1 % (0-1); LYMPHOCYTES ABSOLUTE AUTO 0.41 K/mm3 (0.84-5.20); LYMPHOCYTES PERCENT AUTO 3 % (21-46); MONOCYTES ABSOLUTE AUTO 0.57 K/mm3 (0.16-1.47); MONOCYTES PERCENT AUTO 4 % (4-13); Mean Corpuscular HGB Conc 32.5 g/dL (31.5-36.5); Mean Corpuscular Volume 95 fL (80-100); NEUTROPHILS ABSOLUTE AUTO 12.05 K/mm3 (1.96-9.15); NEUTROPHILS PERCENT AUTO 90 % (41-73); NRBC ABSOLUTE 0.03 K/mm3 (0.00-0.02); NRBC Auto 0.2 /100 WBC (0.0-0.2); Platelet Count 190 K/mm3 (150-400); RDW Coefficient Variation 17.3 % (11.7-14.2); RDW Standard Deviation 59.7 fL (35.1-46.3)
[2025-04-21 04:18] VITALS: BP 106/71
[2025-04-21 04:31] LABS: C-REACTIVE PROTEIN, EXT RANGE 3.120 mg/dL (0.000-0.300); Magnesium, Blood 2.2 mg/dL (1.6-2.4)
[2025-04-21 04:32] LABS: Albumin, Blood 2.4 g/dL (3.4-5.0); Anion Gap 13 mmol/L (3-11); Blood Urea Nitrogen 85 mg/dL (8-24); CO2, Blood 26 mmol/L (21-32); Calcium, Blood 7.5 mg/dL (8.5-10.1); Chloride, Blood 95 mmol/L (98-108); Creatinine, Blood 7.54 mg/dL (0.60-1.20); Glucose, Blood 207 mg/dL (70-99); Phosphorus, Blood 6.3 mg/dL (2.5-4.9); Potassium, Blood 4.1 mmol/L (3.5-5.5); Sodium, Blood 130 mmol/L (136-145)
--- NOTE | 2025-04-21 06:40 | NUR ---
SHIFT SUMMARY: PT IS A&OX4, PLEASANT AND COOPERATIVE WITH CARE. VSS ON RA, CPAP WHILE ASLEEP. SB-SR 50'S-60'S. DENIES PAIN. PT CONNECTED TO PD T/O THE SHIFT. TOLERATING A CONS CARB DIET. CBG REMAINS ELEVATED, ADDITIONAL COVERAGE ADMINISTERED. NO URINE OUT THIS SHIFT. NO BM THIS SHIFT, NO BOWEL CARE ORDERED. NOOB THIS SHIFT, REPOSITIONS SELF IN BED. BED IN LOWEST POSITION, CALL LIGHT WITHIN REACH. CALLS APPROPRIATELY AND IS ABLE TO ADVOCATE NEEDS EFFECTIVELY.
[2025-04-21 07:21] VITALS: BP 96/75
[2025-04-21] MEDS ORDERED: Insulin Glargine-Yfgn 100 Unit/mL 3 ML SYR SC SCH (08:00)
[2025-04-21 09:54] VITALS: BP 98/58
[2025-04-21] MEDS ORDERED: Amiodarone HCl200 MG PO ×2 (09:56)
[2025-04-21] MEDS ORDERED: Q-Tussin100 MG/5 M PO (09:57)
[2025-04-21 11:30] VITALS: BP 105/69
--- NOTE | 2025-04-21 12:02 | NUR ---
DISCHARGE: PT A&Ox4, VSS, HAS BEEN CLEARED FOR DISCHARGE HOME W/INSTRUCTIONS TO FOLLOW UP WITH PCP AND BELLY DANCER. PT SHOWERS AND DRESSES SELF. ALL IV ACCESS DC'd WNL. DC PAPERWORK AND INSTRUCTIONS PROVIDED AND REVIEWED W/ PT AND SPOUSE BOTH V/U AND DENY FURTHER QUESTIONS. PT ESCORTED FROM UNIT VIA W/C W/OUT INCIDENT.
== END 2025-04-21 12:01 | disposition home or self-care (01) | DRG 308 ==
LOC: ER 15:57 → ERHOLD 15:58 → PCU 15:58 → ERHOLD 15:58 → PCU 04-19 00:42
PROVIDERS: Family Medicine; Internal Medicine Nephrology; Nurse Practitioner Acute Care; Student in an Organized Health Care Education/Training Program; ADMIT Internal Medicine
PROC: 5A2204Z Restoration of Cardiac Rhythm, Single (ICD-10-PCS; principal; 2025-04-19)
PROC: 30233N1 Transfusion of Nonautologous Red Blood Cells into Peripheral Vein, Percutaneous Approach (ICD-10-PCS; 2025-04-20)
DX: I48.92 Unspecified atrial flutter (principal); N18.6 End stage renal disease; I30.9 Acute pericarditis, unspecified; I13.2 Hypertensive heart and chronic kidney disease with heart failure and with stage 5 chronic kidney disease, or end stage renal disease; E87.1 Hypo-osmolality and hyponatremia; I24.89 Other forms of acute ischemic heart disease; N25.81 Secondary hyperparathyroidism of renal origin; I50.32 Chronic diastolic (congestive) heart failure; Z99.2 Dependence on renal dialysis; D63.1 Anemia in chronic kidney disease; E11.22 Type 2 diabetes mellitus with diabetic chronic kidney disease; Z96.659 Presence of unspecified artificial knee joint; E87.8 Other disorders of electrolyte and fluid balance, not elsewhere classified; E11.65 Type 2 diabetes mellitus with hyperglycemia; G47.33 Obstructive sleep apnea (adult) (pediatric); E78.5 Hyperlipidemia, unspecified; I35.0 Nonrheumatic aortic (valve) stenosis; I25.10 Atherosclerotic heart disease of native coronary artery without angina pectoris; E66.9 Obesity, unspecified; I08.0 Rheumatic disorders of both mitral and aortic valves; E83.39 Other disorders of phosphorus metabolism; G89.4 Chronic pain syndrome; Z79.01 Long term (current) use of anticoagulants; Z79.899 Other long term (current) drug therapy; Z88.8 Allergy status to other drugs, medicaments and biological substances; Z79.891 Long term (current) use of opiate analgesic; Z79.85 Long-term (current) use of injectable non-insulin antidiabetic drugs; Z79.2 Long term (current) use of antibiotics; Z86.73 Personal history of transient ischemic attack (TIA), and cerebral infarction without residual deficits; Z86.711 Personal history of pulmonary embolism; Z98.84 Bariatric surgery status; Z87.19 Personal history of other diseases of the digestive system; Z91.09 Other allergy status, other than to drugs and biological substances; Z68.33 Body mass index [BMI] 33.0-33.9, adult
CPT/HCPCS: 36415; 36430; 71045; 80053; 80069; 82947; 83735; 83880; 84145; 84443; 84484; 85014; 85018; 85025; 85027; 85651; 86140; 86850; 86900; 86901; 86923; 92960; 93005; 93010; 93306; 93308; 94640; 94664; 94762; 96365; 96366; 96375; 96376; 99285-25; A9270; G0378; J0282; J0881; J1815; J2003; J2371; J2405; J2704; J7030; J7050; J7120; J7512; P9016

== ENCOUNTER 2025-06-05 16:42 | Emergency (ER) | payer MEDICARE, BC ==
[~2025-06-05] VITALS: Ht 175.3 cm; Wt 97.5 kg
[~2025-06-05 16:42] MED LIST changes: -AMOCLA875 PO; -DOXY100 PO
[2025-06-05 17:27] LABS: BASOPHILS ABSOLUTE AUTO 0.02 K/mm3 (0.00-0.23); BASOPHILS PERCENT AUTO 0 % (0-2); EOSINOPHILS ABSOLUTE AUTO 0.15 K/mm3 (0.00-0.68); EOSINOPHILS PERCENT AUTO 2 % (0-6); Hematocrit 31.1 % (37.0-53.0); Hemoglobin 10.6 g/dL (13.5-17.5); IMMATURE GRAN ABSOLUTE AUTO 0.04 K/mm3 (0.00-0.10); IMMATURE GRAN PERCENT AUTO 0 % (0-1); LYMPHOCYTES ABSOLUTE AUTO 0.53 K/mm3 (0.84-5.20); LYMPHOCYTES PERCENT AUTO 5 % (21-46); MONOCYTES ABSOLUTE AUTO 0.65 K/mm3 (0.16-1.47); MONOCYTES PERCENT AUTO 7 % (4-13); Mean Corpuscular HGB Conc 34.1 g/dL (31.5-36.5); Mean Corpuscular Volume 93 fL (80-100); NEUTROPHILS ABSOLUTE AUTO 8.45 K/mm3 (1.96-9.15); NEUTROPHILS PERCENT AUTO 86 % (41-73); NRBC ABSOLUTE 0.00 K/mm3 (0.00-0.02); NRBC Auto 0.0 /100 WBC (0.0-0.2); Platelet Count 265 K/mm3 (150-400); RDW Coefficient Variation 16.1 % (11.7-14.2); RDW Standard Deviation 54.4 fL (35.1-46.3)
[2025-06-05 17:56] LABS: Alanine Aminotransfer (ALT/SGP 15.0 U/L (12-78); Albumin, Blood 2.6 g/dL (3.4-5.0); Albumin/Globulin Ratio 0.6 (0.8-1.8); Anion Gap 11.0 mmol/L (3-11); Aspartate Aminotrans (AST/SGOT 26.0 U/L (12-37); Bilirubin, Total 0.5 mg/dL (0.1-1.0); Blood Urea Nitrogen 87.0 mg/dL (8-24); CO2, Blood 28.0 mmol/L (21-32); Calcium, Blood 9.5 mg/dL (8.5-10.1); Chloride, Blood 92.0 mmol/L (98-108); Creatinine, Blood 7.99 mg/dL (0.60-1.20); Globulin, Blood 4.6 g/dL (2.2-4.0); Glucose, Blood 263.0 mg/dL (70-99); Potassium, Blood 3.8 mmol/L (3.5-5.5); Sodium, Blood 127.0 mmol/L (136-145); Total Protein, Blood 7.2 g/dL (6.4-8.2)
[2025-06-05] MEDS ORDERED: AMOCLA875 PO (19:05)
[2025-06-05] MEDS ORDERED: Doxycycline Hyclate 100 MG in Dextrose 5% 250 ML IV ONE (19:05)
[2025-06-05] MEDS ORDERED: DOXY100 PO (19:05)
[2025-06-05 19:41] VITALS: BP 148/71
== END 2025-06-05 19:58 | disposition home or self-care (01) ==
LOC: ER 16:42
PROVIDERS: Emergency Medicine
DX: J18.9 Pneumonia, unspecified organism (principal); E11.22 Type 2 diabetes mellitus with diabetic chronic kidney disease; I13.0 Hypertensive heart and chronic kidney disease with heart failure and stage 1 through stage 4 chronic kidney disease, or unspecified chronic kidney disease; N18.4 Chronic kidney disease, stage 4 (severe); I50.9 Heart failure, unspecified; Z86.718 Personal history of other venous thrombosis and embolism; Z88.6 Allergy status to analgesic agent; Z88.8 Allergy status to other drugs, medicaments and biological substances; Z79.01 Long term (current) use of anticoagulants; Z79.4 Long term (current) use of insulin; Z79.899 Other long term (current) drug therapy; R07.9 Chest pain, unspecified
CPT/HCPCS: 36415; 71046; 80053; 83036; 83690; 83735; 83880; 84100; 84484; 85025; 93005; 93010; 99284-25; A9270; J7060

== ENCOUNTER → 2025-06-05 | Outpatient (CLI) | payer MEDICARE, BC ==
[~2025-06-05] MED LIST changes: +AMOCLA875 PO; +Amiodarone HCl200 MG PO; +DOXY100 PO; +Prednisone10 MG PO; +Q-Tussin100 MG/5 M PO; +SERT50 PO
[2025-06-05 15:50] LABS: BASOPHILS ABSOLUTE AUTO 0.03 K/mm3 (0.00-0.23); BASOPHILS PERCENT AUTO 0 % (0-2); EOSINOPHILS ABSOLUTE AUTO 0.14 K/mm3 (0.00-0.68); EOSINOPHILS PERCENT AUTO 2 % (0-6); Hematocrit 31.8 % (37.0-53.0); Hemoglobin 10.5 g/dL (13.5-17.5); IMMATURE GRAN ABSOLUTE AUTO 0.06 K/mm3 (0.00-0.10); IMMATURE GRAN PERCENT AUTO 1 % (0-1); LYMPHOCYTES ABSOLUTE AUTO 0.47 K/mm3 (0.84-5.20); LYMPHOCYTES PERCENT AUTO 5 % (21-46); MONOCYTES ABSOLUTE AUTO 0.61 K/mm3 (0.16-1.47); MONOCYTES PERCENT AUTO 7 % (4-13); Mean Corpuscular HGB Conc 33.0 g/dL (31.5-36.5); Mean Corpuscular Volume 93 fL (80-100); NEUTROPHILS ABSOLUTE AUTO 7.74 K/mm3 (1.96-9.15); NEUTROPHILS PERCENT AUTO 86 % (41-73); NRBC ABSOLUTE 0.00 K/mm3 (0.00-0.02); NRBC Auto 0.0 /100 WBC (0.0-0.2); Platelet Count 219 K/mm3 (150-400); RDW Coefficient Variation 16.1 % (11.7-14.2); RDW Standard Deviation 54.3 fL (35.1-46.3)
[2025-06-05 15:59] LABS: Alanine Aminotransfer (ALT/SGP 14.0 U/L (12-78); Albumin, Blood 2.7 g/dL (3.4-5.0); Albumin/Globulin Ratio 0.6 (0.8-1.8); Anion Gap 15.0 mmol/L (3-11); Aspartate Aminotrans (AST/SGOT 7.0 U/L (12-37); Bilirubin, Total 0.5 mg/dL (0.1-1.0); Blood Urea Nitrogen 97.0 mg/dL (8-24); CO2, Blood 28.0 mmol/L (21-32); Calcium, Blood 9.3 mg/dL (8.5-10.1); Chloride, Blood 91.0 mmol/L (98-108); Globulin, Blood 4.4 g/dL (2.2-4.0); Glucose, Blood 319.0 mg/dL (70-99); Magnesium, Blood 2.1 mg/dL (1.6-2.4); Phosphorus, Blood 4.2 mg/dL (2.5-4.9); Potassium, Blood 3.6 mmol/L (3.5-5.5); Sodium, Blood 130.0 mmol/L (136-145); Total Protein, Blood 7.1 g/dL (6.4-8.2)
[2025-06-05 16:00] LABS: Creatinine, Blood 8.17 mg/dL (0.60-1.20)
== END ==
LOC: LAB SHORT 15:40 → LAB 15:40
PROVIDERS: Chiropractor
DX: R07.9 Chest pain, unspecified (principal)
CPT/HCPCS: 80053; 83735; 84100; 84484; 85025

== ENCOUNTER 2025-06-09 12:53 | Emergency (ER) | payer MEDICARE, BC ==
[~2025-06-09] VITALS: Ht 175.3 cm; Wt 113.4 kg
[~2025-06-09 12:53] MED LIST changes: +AMOCLA875 PO; +DOXY100 PO
[2025-06-09 13:19] VITALS: BP 108/64
[2025-06-09 13:21] LABS: BASOPHILS ABSOLUTE AUTO 0.02 K/mm3 (0.00-0.23); BASOPHILS PERCENT AUTO 0 % (0-2); EOSINOPHILS ABSOLUTE AUTO 0.19 K/mm3 (0.00-0.68); EOSINOPHILS PERCENT AUTO 2 % (0-6); Hematocrit 30.7 % (37.0-53.0); Hemoglobin 10.0 g/dL (13.5-17.5); IMMATURE GRAN ABSOLUTE AUTO 0.05 K/mm3 (0.00-0.10); IMMATURE GRAN PERCENT AUTO 1 % (0-1); LYMPHOCYTES ABSOLUTE AUTO 0.46 K/mm3 (0.84-5.20); LYMPHOCYTES PERCENT AUTO 4 % (21-46); MONOCYTES ABSOLUTE AUTO 0.66 K/mm3 (0.16-1.47); MONOCYTES PERCENT AUTO 6 % (4-13); Mean Corpuscular HGB Conc 32.6 g/dL (31.5-36.5); Mean Corpuscular Volume 95 fL (80-100); NEUTROPHILS ABSOLUTE AUTO 9.60 K/mm3 (1.96-9.15); NEUTROPHILS PERCENT AUTO 87 % (41-73); NRBC ABSOLUTE 0.00 K/mm3 (0.00-0.02); NRBC Auto 0.0 /100 WBC (0.0-0.2); Platelet Count 242 K/mm3 (150-400); RDW Coefficient Variation 15.9 % (11.7-14.2); RDW Standard Deviation 54.4 fL (35.1-46.3)
[2025-06-09 14:11] LABS: Alanine Aminotransfer (ALT/SGP 16.0 U/L (12-78); Albumin, Blood 2.4 g/dL (3.4-5.0); Albumin/Globulin Ratio 0.5 (0.8-1.8); Anion Gap 11.0 mmol/L (3-11); Aspartate Aminotrans (AST/SGOT 12.0 U/L (12-37); Bilirubin, Total 0.4 mg/dL (0.1-1.0); Blood Urea Nitrogen 76.0 mg/dL (8-24); CO2, Blood 28.0 mmol/L (21-32); Calcium, Blood 9.7 mg/dL (8.5-10.1); Chloride, Blood 92.0 mmol/L (98-108); Creatinine, Blood 8.77 mg/dL (0.60-1.20); Globulin, Blood 4.7 g/dL (2.2-4.0); Glucose, Blood 179.0 mg/dL (70-99); Potassium, Blood 3.9 mmol/L (3.5-5.5); Sodium, Blood 127.0 mmol/L (136-145); Total Protein, Blood 7.1 g/dL (6.4-8.2)
== END 2025-06-09 16:48 | disposition home or self-care (01) ==
LOC: ER 12:53
PROVIDERS: Emergency Medicine
DX: R07.2 Precordial pain (principal); E87.1 Hypo-osmolality and hyponatremia; E11.22 Type 2 diabetes mellitus with diabetic chronic kidney disease; I12.0 Hypertensive chronic kidney disease with stage 5 chronic kidney disease or end stage renal disease; N18.5 Chronic kidney disease, stage 5; D63.1 Anemia in chronic kidney disease; R79.89 Other specified abnormal findings of blood chemistry; Z79.899 Other long term (current) drug therapy; Z79.4 Long term (current) use of insulin; Z88.6 Allergy status to analgesic agent; Z88.8 Allergy status to other drugs, medicaments and biological substances
CPT/HCPCS: 71046; 80053; 84484; 85025; 93005; 93010; 99285-25

== ENCOUNTER 2025-06-30 13:52 | Emergency (ER) | payer MEDICARE, BC ==
[~2025-06-30] VITALS: Ht 175.3 cm; Wt 97.5 kg
[2025-06-30 14:35] LABS: BASOPHILS ABSOLUTE AUTO 0.03 K/mm3 (0.00-0.23); BASOPHILS PERCENT AUTO 0 % (0-2); EOSINOPHILS ABSOLUTE AUTO 0.25 K/mm3 (0.00-0.68); EOSINOPHILS PERCENT AUTO 3 % (0-6); Hematocrit 34.9 % (37.0-53.0); Hemoglobin 11.3 g/dL (13.5-17.5); IMMATURE GRAN ABSOLUTE AUTO 0.04 K/mm3 (0.00-0.10); IMMATURE GRAN PERCENT AUTO 1 % (0-1); LYMPHOCYTES ABSOLUTE AUTO 0.53 K/mm3 (0.84-5.20); LYMPHOCYTES PERCENT AUTO 7 % (21-46); MONOCYTES ABSOLUTE AUTO 0.54 K/mm3 (0.16-1.47); MONOCYTES PERCENT AUTO 7 % (4-13); Mean Corpuscular HGB Conc 32.4 g/dL (31.5-36.5); Mean Corpuscular Volume 96 fL (80-100); NEUTROPHILS ABSOLUTE AUTO 6.67 K/mm3 (1.96-9.15); NEUTROPHILS PERCENT AUTO 83 % (41-73); NRBC ABSOLUTE 0.00 K/mm3 (0.00-0.02); NRBC Auto 0.0 /100 WBC (0.0-0.2); Platelet Count 211 K/mm3 (150-400); RDW Coefficient Variation 15.9 % (11.7-14.2); RDW Standard Deviation 54.4 fL (35.1-46.3)
[2025-06-30 14:57] LABS: Alanine Aminotransfer (ALT/SGP 17.0 U/L (12-78); Albumin, Blood 2.6 g/dL (3.4-5.0); Albumin/Globulin Ratio 0.6 (0.8-1.8); Anion Gap 14.0 mmol/L (3-11); Aspartate Aminotrans (AST/SGOT 12.0 U/L (12-37); Bilirubin, Total 0.5 mg/dL (0.1-1.0); Blood Urea Nitrogen 60.0 mg/dL (8-24); CO2, Blood 26.0 mmol/L (21-32); Calcium, Blood 8.7 mg/dL (8.5-10.1); Chloride, Blood 95.0 mmol/L (98-108); Creatinine, Blood 7.44 mg/dL (0.60-1.20); Globulin, Blood 4.7 g/dL (2.2-4.0); Glucose, Blood 145.0 mg/dL (70-99); Potassium, Blood 3.6 mmol/L (3.5-5.5); Sodium, Blood 131.0 mmol/L (136-145); Total Protein, Blood 7.3 g/dL (6.4-8.2)
[2025-06-30 18:30] VITALS: BP 163/85
== END 2025-06-30 18:51 | disposition home or self-care (01) ==
LOC: ER 13:52
PROVIDERS: Emergency Medicine
DX: M25.461 Effusion, right knee (principal); E11.22 Type 2 diabetes mellitus with diabetic chronic kidney disease; I13.0 Hypertensive heart and chronic kidney disease with heart failure and stage 1 through stage 4 chronic kidney disease, or unspecified chronic kidney disease; I50.9 Heart failure, unspecified; N18.4 Chronic kidney disease, stage 4 (severe); Z96.659 Presence of unspecified artificial knee joint; Z88.8 Allergy status to other drugs, medicaments and biological substances; Z91.09 Other allergy status, other than to drugs and biological substances; Z79.01 Long term (current) use of anticoagulants; Z79.899 Other long term (current) drug therapy; Z79.4 Long term (current) use of insulin
CPT/HCPCS: 74177; 76882; 80053; 82550; 85025; 99284-25; Q9967

== ENCOUNTER 2025-09-30 15:37 | Emergency (ER) | payer MEDICARE, BC ==
[~2025-09-30] VITALS: Ht 175.3 cm; Wt 99.8 kg
[2025-09-30 16:42] LABS: BASOPHILS ABSOLUTE AUTO 0.04 K/mm3 (0.00-0.23); BASOPHILS PERCENT AUTO 0 % (0-2); EOSINOPHILS ABSOLUTE AUTO 0.02 K/mm3 (0.00-0.68); EOSINOPHILS PERCENT AUTO 0 % (0-6); Hematocrit 30.8 % (37.0-53.0); Hemoglobin 10.1 g/dL (13.5-17.5); IMMATURE GRAN ABSOLUTE AUTO 0.25 K/mm3 (0.00-0.10); IMMATURE GRAN PERCENT AUTO 2 % (0-1); LYMPHOCYTES ABSOLUTE AUTO 0.27 K/mm3 (0.84-5.20); LYMPHOCYTES PERCENT AUTO 2 % (21-46); MONOCYTES ABSOLUTE AUTO 0.58 K/mm3 (0.16-1.47); MONOCYTES PERCENT AUTO 3 % (4-13); Mean Corpuscular HGB Conc 32.8 g/dL (31.5-36.5); Mean Corpuscular Volume 94 fL (80-100); NEUTROPHILS ABSOLUTE AUTO 16.04 K/mm3 (1.96-9.15); NEUTROPHILS PERCENT AUTO 93 % (41-73); NRBC ABSOLUTE 0.00 K/mm3 (0.00-0.02); NRBC Auto 0.0 /100 WBC (0.0-0.2); Platelet Count 135 K/mm3 (150-400); RDW Coefficient Variation 15.7 % (11.7-14.2); RDW Standard Deviation 54.5 fL (35.1-46.3)
[2025-09-30 17:32] LABS: Alanine Aminotransfer (ALT/SGP 21.0 U/L (12-78); Anion Gap 17.0 mmol/L (3-11); Aspartate Aminotrans (AST/SGOT 26.0 U/L (12-37); Bilirubin, Total 0.5 mg/dL (0.1-1.0); Blood Urea Nitrogen 74.0 mg/dL (8-24); CO2, Blood 21.0 mmol/L (21-32); Calcium, Blood 8.5 mg/dL (8.5-10.1); Chloride, Blood 90.0 mmol/L (98-108); Glucose, Blood 303.0 mg/dL (70-99); Potassium, Blood 3.7 mmol/L (3.5-5.5); Sodium, Blood 124.0 mmol/L (136-145); Total Protein, Blood 6.8 g/dL (6.4-8.2)
[2025-09-30 17:46] LABS: Albumin, Blood 1.9 g/dL (3.4-5.0); Albumin/Globulin Ratio 0.4 (0.8-1.8); Creatinine, Blood 8.57 mg/dL (0.60-1.20); Globulin, Blood 4.9 g/dL (2.2-4.0)
[2025-09-30] MEDS ORDERED: SULTRIDS PO (19:35)
[2025-09-30] MEDS ORDERED: Trimethoprim/Sulfamethoxazole DS Tab PO ONE (19:35)
[2025-09-30 20:00] VITALS: BP 119/68
== END 2025-09-30 20:10 | disposition home or self-care (01) ==
LOC: ER 15:37
PROVIDERS: Student in an Organized Health Care Education/Training Program
DX: L02.31 Cutaneous abscess of buttock (principal); I13.0 Hypertensive heart and chronic kidney disease with heart failure and stage 1 through stage 4 chronic kidney disease, or unspecified chronic kidney disease; E11.22 Type 2 diabetes mellitus with diabetic chronic kidney disease; N18.4 Chronic kidney disease, stage 4 (severe); I50.9 Heart failure, unspecified; Z88.6 Allergy status to analgesic agent; Z88.8 Allergy status to other drugs, medicaments and biological substances; Z79.899 Other long term (current) drug therapy; Z79.01 Long term (current) use of anticoagulants; Z79.4 Long term (current) use of insulin
CPT/HCPCS: 10060; 80053; 85025; 87070; 87077; 87186; 87205; 99283-25; A9270

== ENCOUNTER 2025-10-02 21:13 | Inpatient (IN) | payer MEDICARE, BC ==
[~2025-10-02] VITALS: Ht 175.3 cm; Wt 101.5 kg
[~2025-10-02 21:13] MED LIST changes: +SULTRIDS PO
[2025-10-02] MEDS ORDERED: HYDROmorphone HCl/Pf 1MG SYR IV ONE (22:05)
[2025-10-02 22:11] LABS: BASOPHILS ABSOLUTE AUTO 0.04 K/mm3 (0.00-0.23); BASOPHILS PERCENT AUTO 0 % (0-2); EOSINOPHILS ABSOLUTE AUTO 0.14 K/mm3 (0.00-0.68); EOSINOPHILS PERCENT AUTO 1 % (0-6); Hematocrit 31.6 % (37.0-53.0); Hemoglobin 10.5 g/dL (13.5-17.5); IMMATURE GRAN ABSOLUTE AUTO 0.58 K/mm3 (0.00-0.10); IMMATURE GRAN PERCENT AUTO 4 % (0-1); LYMPHOCYTES ABSOLUTE AUTO 0.47 K/mm3 (0.84-5.20); LYMPHOCYTES PERCENT AUTO 3 % (21-46); MONOCYTES ABSOLUTE AUTO 0.54 K/mm3 (0.16-1.47); MONOCYTES PERCENT AUTO 4 % (4-13); Mean Corpuscular HGB Conc 33.2 g/dL (31.5-36.5); Mean Corpuscular Volume 93 fL (80-100); NEUTROPHILS ABSOLUTE AUTO 12.13 K/mm3 (1.96-9.15); NEUTROPHILS PERCENT AUTO 87 % (41-73); NRBC ABSOLUTE 0.06 K/mm3 (0.00-0.02); NRBC Auto 0.4 /100 WBC (0.0-0.2); Platelet Count 186 K/mm3 (150-400); RDW Coefficient Variation 15.8 % (11.7-14.2); RDW Standard Deviation 53.6 fL (35.1-46.3)
[2025-10-02 22:25] LABS: Alanine Aminotransfer (ALT/SGP 28.0 U/L (12-78); Albumin, Blood 2.1 g/dL (3.4-5.0); Albumin/Globulin Ratio 0.4 (0.8-1.8); Anion Gap 14.0 mmol/L (3-11); Aspartate Aminotrans (AST/SGOT 21.0 U/L (12-37); Bilirubin, Total 0.4 mg/dL (0.1-1.0); Blood Urea Nitrogen 85.0 mg/dL (8-24); CO2, Blood 27.0 mmol/L (21-32); Calcium, Blood 8.7 mg/dL (8.5-10.1); Chloride, Blood 89.0 mmol/L (98-108); Creatinine, Blood 7.47 mg/dL (0.60-1.20); Globulin, Blood 4.9 g/dL (2.2-4.0); Glucose, Blood 213.0 mg/dL (70-99); Potassium, Blood 3.2 mmol/L (3.5-5.5); Sodium, Blood 127.0 mmol/L (136-145); Total Protein, Blood 7.0 g/dL (6.4-8.2)
[2025-10-02] MEDS ORDERED: Vancomycin (Pharmacy Consult) IV PRN (22:55)
[2025-10-02] MEDS ORDERED: MetroNIDAZOLE 500MG/NS 100 ml 100 ML IV ONE (22:55)
[2025-10-02] MEDS ORDERED: NS 1,000 ML IV SCH (22:55)
[2025-10-02] MEDS ORDERED: Cefepime HCl 2,000 MG in NS 100 ML IV ONE (22:55)
[2025-10-02 23:20] LABS: Prothrombin Time Results 13.3 Sec (9.7-11.5)
[2025-10-03] VITALS (79 sets, daily range): BP systolic 63–136; BP diastolic 29–93
[2025-10-03] MEDS ORDERED: FLU VACC TS2025(65UP)/MF59C/PF 45 MCG/0.5 ML SYRINGE IM SCH (00:45)
[2025-10-03] MEDS ORDERED: HYDROmorphone HCl/Pf 1MG SYR IV PRN ×2 (00:45→01:55)
[2025-10-03] MEDS ORDERED: Naloxone HCl 0.4MG / ML 1ML Vial IV PRN (00:50)
[2025-10-03] MEDS ORDERED: Vancomycin (Pharmacy Consult) IV SCH (00:50)
[2025-10-03] MEDS ORDERED: Ondansetron HCl 2 MG / ML 2ML Vial IV PRN ×2 (00:50→01:55)
[2025-10-03] MEDS ORDERED: Rocuronium Bromide 10 MG/ML 5ML Injection IV ONE (00:56)
[2025-10-03] MEDS ORDERED: Sugammadex Sodium 200 MG/2ML SDV (100 MG/ML) ONE (00:56)
[2025-10-03] MEDS ORDERED: FentaNYL Citrate 50 MCG/ML 2 ML Injection ONE (00:56)
[2025-10-03] MEDS ORDERED: Ondansetron HCl 2 MG / ML 2ML Vial ONE (00:56)
[2025-10-03] MEDS ORDERED: Clindamycin 900mg in D5W 50ML 50 ML IV SCH (00:56)
[2025-10-03] MEDS ORDERED: Dexamethasone Sod Phos 10 MG/ML 1ML VIAL ONE (00:56)
[2025-10-03] MEDS ORDERED: Phenylephrine HCl 100 MCG/ML-NS 10MLSYR (1MG/10ML) ONE (01:18)
[2025-10-03] MEDS ORDERED: Metoclopramide HCl 5MG / ML 2ML Vial IV PRN (01:55)
[2025-10-03] MEDS ORDERED: FentaNYL Citrate 50 MCG/ML 2 ML Injection IV PRN ×3 (01:55)
[2025-10-03 02:57] LABS: BASOPHILS ABSOLUTE AUTO 0.04 K/mm3 (0.00-0.23); BASOPHILS PERCENT AUTO 0 % (0-2); EOSINOPHILS ABSOLUTE AUTO 0.05 K/mm3 (0.00-0.68); EOSINOPHILS PERCENT AUTO 0 % (0-6); Hematocrit 23.6 % (37.0-53.0); Hemoglobin 7.9 g/dL (13.5-17.5); IMMATURE GRAN ABSOLUTE AUTO 0.34 K/mm3 (0.00-0.10); IMMATURE GRAN PERCENT AUTO 3 % (0-1); LYMPHOCYTES ABSOLUTE AUTO 0.35 K/mm3 (0.84-5.20); LYMPHOCYTES PERCENT AUTO 3 % (21-46); MONOCYTES ABSOLUTE AUTO 0.65 K/mm3 (0.16-1.47); MONOCYTES PERCENT AUTO 5 % (4-13); Mean Corpuscular HGB Conc 33.5 g/dL (31.5-36.5); Mean Corpuscular Volume 93 fL (80-100); NEUTROPHILS ABSOLUTE AUTO 11.28 K/mm3 (1.96-9.15); NEUTROPHILS PERCENT AUTO 89 % (41-73); NRBC ABSOLUTE 0.05 K/mm3 (0.00-0.02); NRBC Auto 0.4 /100 WBC (0.0-0.2); Platelet Count 124 K/mm3 (150-400); RDW Coefficient Variation 15.9 % (11.7-14.2); RDW Standard Deviation 54.3 fL (35.1-46.3)
[2025-10-03 03:27] LABS: Alanine Aminotransfer (ALT/SGP 21.0 U/L (12-78); Albumin, Blood 1.4 g/dL (3.4-5.0); Albumin/Globulin Ratio 0.3 (0.8-1.8); Anion Gap 14.0 mmol/L (3-11); Aspartate Aminotrans (AST/SGOT 18.0 U/L (12-37); Bilirubin, Total 0.4 mg/dL (0.1-1.0); Blood Urea Nitrogen 90.0 mg/dL (8-24); CO2, Blood 24.0 mmol/L (21-32); Calcium, Blood 7.6 mg/dL (8.5-10.1); Chloride, Blood 96.0 mmol/L (98-108); Creatinine, Blood 6.99 mg/dL (0.60-1.20); Globulin, Blood 4.1 g/dL (2.2-4.0); Glucose, Blood 176.0 mg/dL (70-99); Magnesium, Blood 1.4 mg/dL (1.6-2.4); Potassium, Blood 3.5 mmol/L (3.5-5.5); Sodium, Blood 130.0 mmol/L (136-145); Total Protein, Blood 5.5 g/dL (6.4-8.2)
[2025-10-03] MEDS ORDERED: Mag Sulfate 1 GM/D5% 100ML 100 ML IV ONE (05:25)
[2025-10-03] MEDS ORDERED: Darbepoetin (Pharmacy Consult) SC SCH ×2 (06:35→06:40)
--- NOTE | 2025-10-03 07:57 | NUR ---
SHIFT SUMMARY PT REMAINS ALERT AND ORIENTED WITH PAIN CONTROL ISSUES. AFEBRILE. MAEW. CAN MAKE NEEDS KNOWN AND FOLLOWS COMMANDS. STAYING OFF LEFT BUTTOCKS IS BEST PAIN CONTROL METHOD BUT PHARMACOLOGIC INTERVENTIONS HELPED SOME. SINUS RHYTHM WITH CONTROLLED RATE BUT SOFT BP THAT STEADILY DECREASED RESULTED IN LEVOPHED BEING STARTED THROUGH LEFT FA PIV AND BEING TITRATED UP TO 12 MCG/MIN BY END OF SHIFT. 10MG MIDODRINE GIVEN. ADDITIONAL IV ACCESS MAY BE NEEDED. NO CHEST PAIN/PRESSURE ALL SHIFT. PT ON 3L NC WITH SAT > 92%. NO SOB. NO AB PAIN, N/V, THOUGH N/V YESTERDAY. WOUND ON BUTTOCKS IS DRAINING SMALL TO MODERATE AMOUNT OF SEROSANGUINOUS FLUID WITH SMALL BLAIRE BLEEDING NOTED WHEN CHANGING DRESSING WITH DAY RN. LR INFUSING AT 50ML/HR. BEDSIDE SHIFT REPORT GIVEN TO DAY RN.
[2025-10-03] MEDS ORDERED: NS 250 ML IV PRN (08:45)
[2025-10-03] MEDS ORDERED: Piperacillin/Tazobactam Sod 3.375 GM in NS 100 ML IV SCH (09:00)
[2025-10-03] MEDS ORDERED: Lactobacil 2-S.Thermo-Bifido 1 1 Cap PO SCH (09:00)
[2025-10-03] MEDS ORDERED: Piperacillin/Tazobactam Sod 4.5 GM in NS 100 ML IV SCH (09:00)
[2025-10-03 11:51] LABS: BASOPHILS ABSOLUTE AUTO 0.05 K/mm3 (0.00-0.23); BASOPHILS PERCENT AUTO 0 % (0-2); EOSINOPHILS ABSOLUTE AUTO 0.14 K/mm3 (0.00-0.68); EOSINOPHILS PERCENT AUTO 1 % (0-6); Hematocrit 25.2 % (37.0-53.0); Hemoglobin 8.4 g/dL (13.5-17.5); IMMATURE GRAN ABSOLUTE AUTO 0.64 K/mm3 (0.00-0.10); IMMATURE GRAN PERCENT AUTO 3 % (0-1); LYMPHOCYTES ABSOLUTE AUTO 0.21 K/mm3 (0.84-5.20); LYMPHOCYTES PERCENT AUTO 1 % (21-46); MONOCYTES ABSOLUTE AUTO 0.38 K/mm3 (0.16-1.47); MONOCYTES PERCENT AUTO 2 % (4-13); Mean Corpuscular HGB Conc 33.3 g/dL (31.5-36.5); Mean Corpuscular Volume 92 fL (80-100); NEUTROPHILS ABSOLUTE AUTO 22.34 K/mm3 (1.96-9.15); NEUTROPHILS PERCENT AUTO 94 % (41-73); NRBC ABSOLUTE 0.02 K/mm3 (0.00-0.02); NRBC Auto 0.1 /100 WBC (0.0-0.2); Platelet Count 176 K/mm3 (150-400); RDW Coefficient Variation 15.9 % (11.7-14.2); RDW Standard Deviation 53.4 fL (35.1-46.3)
[2025-10-03 12:06] LABS: Albumin, Blood 1.5 g/dL (3.4-5.0); Anion Gap 17 mmol/L (3-11); Blood Urea Nitrogen 96 mg/dL (8-24); CO2, Blood 22 mmol/L (21-32); Calcium, Blood 7.9 mg/dL (8.5-10.1); Chloride, Blood 93 mmol/L (98-108); Creatinine, Blood 7.57 mg/dL (0.60-1.20); Glucose, Blood 358 mg/dL (70-99); Phosphorus, Blood 5.4 mg/dL (2.5-4.9); Potassium, Blood 4.1 mmol/L (3.5-5.5); Sodium, Blood 128 mmol/L (136-145)
[2025-10-03 15:32] LABS: Vancomycin, Random 24.0 ug/mL
[2025-10-03] MEDS ORDERED: Darbepoetin Alfa In Albumn Sol 40 MCG/0.4 ML SC SCH (16:00)
[2025-10-03] MEDS ORDERED: Insulin Human Lispro 100 Units/ML 3ML Syringe SC SCH (16:30)
--- NOTE | 2025-10-03 18:02 | NUR ---
SHIFT SUMMARY NO ACUTE CHANGES THIS SHIFT. PT HAS REMAINED ALERT AND ORIENTED WHEN AWAKE. PT RESTING QUIETLY OFF AND ON THIS SHIFT. PT HAS COMPLAINED OF PAIN TO SURGICAL SITE TO BUTTOCKS, PT MED WITH DILAUDID PER EMAR. DR IRIZARRY IN TO SEE SURGICAL SITE AND ASSIST WITH DRESSING CHANGE THIS MORNING. BLEEDING FROM SITE HAS SLOWED THIS SHIFT. DRESSING CHANGED THIS EVENING INSTRUCTED. PT ABLE TO REPOSITION SELF IN BED FOR COMFORT. VITAL SIGNS HAVE REMAINED STABLE. LEVOPHED TITRATED DOWN TO 2 MCG/MIN THIS SHIFT. NS INFUSING TKO. PICC PLACED TO KEVIN THIS MORNING. NO CHANGES TO PD PORT. PT SPOUSE AND SON AT BEDSIDE THIS EVENING. WILL CONTINUE TO MONITOR AND REPORT OFF TO ONCOMING RN.
--- NOTE | 2025-10-03 19:23 | NUR ---
Assumed care of pt Pt resting on bed w/ family at bedside. Pt alert, oriented and calm. Levophed infusing at 2mcg/min. Peritoneal dialysis being managed by [facility] Rn who is also at bedside. Pt on room air, sats 97%. Lungs clear. pt HR 40-50s. Pt provided urinal, but sts he is anuric at baseline. Pt to be npo after midnight, verbalizes understanding. Call light w/ in reach. Plan of care ongoing.
[2025-10-03 19:56] LABS: BASOPHILS ABSOLUTE AUTO 0.05 K/mm3 (0.00-0.23); BASOPHILS PERCENT AUTO 0 % (0-2); EOSINOPHILS ABSOLUTE AUTO 0.00 K/mm3 (0.00-0.68); EOSINOPHILS PERCENT AUTO 0 % (0-6); Hematocrit 24.4 % (37.0-53.0); Hemoglobin 8.2 g/dL (13.5-17.5); IMMATURE GRAN ABSOLUTE AUTO 0.55 K/mm3 (0.00-0.10); IMMATURE GRAN PERCENT AUTO 3 % (0-1); LYMPHOCYTES ABSOLUTE AUTO 0.28 K/mm3 (0.84-5.20); LYMPHOCYTES PERCENT AUTO 1 % (21-46); MONOCYTES ABSOLUTE AUTO 0.54 K/mm3 (0.16-1.47); MONOCYTES PERCENT AUTO 3 % (4-13); Mean Corpuscular HGB Conc 33.6 g/dL (31.5-36.5); Mean Corpuscular Volume 92 fL (80-100); NEUTROPHILS ABSOLUTE AUTO 19.99 K/mm3 (1.96-9.15); NEUTROPHILS PERCENT AUTO 93 % (41-73); NRBC ABSOLUTE 0.02 K/mm3 (0.00-0.02); NRBC Auto 0.1 /100 WBC (0.0-0.2); Platelet Count 162 K/mm3 (150-400); RDW Coefficient Variation 16.1 % (11.7-14.2); RDW Standard Deviation 54.1 fL (35.1-46.3)
[2025-10-03 20:12] LABS: Albumin, Blood 1.7 g/dL (3.4-5.0); Anion Gap 16 mmol/L (3-11); Blood Urea Nitrogen 92 mg/dL (8-24); CO2, Blood 21 mmol/L (21-32); Calcium, Blood 7.5 mg/dL (8.5-10.1); Chloride, Blood 94 mmol/L (98-108); Creatinine, Blood 7.63 mg/dL (0.60-1.20); Glucose, Blood 297 mg/dL (70-99); Phosphorus, Blood 5.5 mg/dL (2.5-4.9); Potassium, Blood 4.1 mmol/L (3.5-5.5); Sodium, Blood 127 mmol/L (136-145)
[2025-10-04] VITALS (37 sets, daily range): BP systolic 89–145; BP diastolic 44–113
[2025-10-04 04:11] LABS: BASOPHILS ABSOLUTE AUTO 0.03 K/mm3 (0.00-0.23); BASOPHILS PERCENT AUTO 0 % (0-2); EOSINOPHILS ABSOLUTE AUTO 0.00 K/mm3 (0.00-0.68); EOSINOPHILS PERCENT AUTO 0 % (0-6); Hematocrit 24.1 % (37.0-53.0); Hemoglobin 8.1 g/dL (13.5-17.5); IMMATURE GRAN ABSOLUTE AUTO 0.34 K/mm3 (0.00-0.10); IMMATURE GRAN PERCENT AUTO 2 % (0-1); LYMPHOCYTES ABSOLUTE AUTO 0.24 K/mm3 (0.84-5.20); LYMPHOCYTES PERCENT AUTO 1 % (21-46); MONOCYTES ABSOLUTE AUTO 0.50 K/mm3 (0.16-1.47); MONOCYTES PERCENT AUTO 3 % (4-13); Mean Corpuscular HGB Conc 33.6 g/dL (31.5-36.5); Mean Corpuscular Volume 91 fL (80-100); NEUTROPHILS ABSOLUTE AUTO 15.92 K/mm3 (1.96-9.15); NEUTROPHILS PERCENT AUTO 94 % (41-73); NRBC ABSOLUTE 0.02 K/mm3 (0.00-0.02); NRBC Auto 0.1 /100 WBC (0.0-0.2); Platelet Count 159 K/mm3 (150-400); RDW Coefficient Variation 16.1 % (11.7-14.2); RDW Standard Deviation 53.0 fL (35.1-46.3)
[2025-10-04 04:19] LABS: Albumin, Blood 1.4 g/dL (3.4-5.0); Anion Gap 17 mmol/L (3-11); Blood Urea Nitrogen 90 mg/dL (8-24); CO2, Blood 22 mmol/L (21-32); Calcium, Blood 7.7 mg/dL (8.5-10.1); Chloride, Blood 92 mmol/L (98-108); Creatinine, Blood 6.73 mg/dL (0.60-1.20); Glucose, Blood 489 mg/dL (70-99); Magnesium, Blood 1.7 mg/dL (1.6-2.4); Phosphorus, Blood 5.5 mg/dL (2.5-4.9); Potassium, Blood 3.7 mmol/L (3.5-5.5); Sodium, Blood 127 mmol/L (136-145); Vancomycin, Random 20.6 ug/mL
--- NOTE | 2025-10-04 06:28 | NUR ---
NOC SHIFT SUMMARY. PT REMAINS ALERT, ORIENTED, AND COOPERATIVE W/ CARE. LEVOPHED ON STANDBY. PT LUNGS CLEAR AND ON RA T/O NIGHT. TO BRING IN HOME CPAP MACHINE TODAY. PT HR SINUS RAMAN, LOW 38 WHILE SLEEPING. MAP>65. PT AFEBRILE. PT NPO AFTER MIDNIGHT FOR PROCEDURE TODAY. WOUND TO L. GLUTE PACKED W/ KERLEX SOAKED W/ STERILE SALINE, AND DRY ABD PAD APPLIED TWICE DURING SHIFT. PT MEDICATED PRIOR TO PROCEDURE AND TOLERATES WELL. SON AT BEDSIDE. CALL LIGHT WITHIN REACH. PLAN OF CARE ONGOING.
[2025-10-04] MEDS ORDERED: Insulin Human Lispro 100 Units/ML 3ML Syringe SC SCH (07:30)
--- NOTE | 2025-10-04 07:51 | NUR ---
TO PT RM [id number] AT APPROX 0715AM, PT LAYING IN BED WITH LIGHTS OFF RESTING. VITAL SIGNS STBALE, PT STATES HE GOT SOME REST OVER THE NIGHT AND IS FEELING A LITTLE BETTER. IDRAIN: 2344ML TOTAL UF: -67ML AVG DWELL TIME: 1:16 LOST DWEL: 0:19 NO ALARMS OCCURED, NO FIBRIN OBSERVED PT DISCONNECTED FROM TX PER ASEPTIC PROTOCOL AT APPROX 0730AM
[2025-10-04 11:48] LABS: BASOPHILS ABSOLUTE AUTO 0.02 K/mm3 (0.00-0.23); BASOPHILS PERCENT AUTO 0 % (0-2); EOSINOPHILS ABSOLUTE AUTO 0.01 K/mm3 (0.00-0.68); EOSINOPHILS PERCENT AUTO 0 % (0-6); Hematocrit 21.6 % (37.0-53.0); Hemoglobin 7.3 g/dL (13.5-17.5); IMMATURE GRAN ABSOLUTE AUTO 0.33 K/mm3 (0.00-0.10); IMMATURE GRAN PERCENT AUTO 2 % (0-1); LYMPHOCYTES ABSOLUTE AUTO 0.33 K/mm3 (0.84-5.20); LYMPHOCYTES PERCENT AUTO 2 % (21-46); MONOCYTES ABSOLUTE AUTO 0.53 K/mm3 (0.16-1.47); MONOCYTES PERCENT AUTO 4 % (4-13); Mean Corpuscular HGB Conc 33.8 g/dL (31.5-36.5); Mean Corpuscular Volume 91 fL (80-100); NEUTROPHILS ABSOLUTE AUTO 13.73 K/mm3 (1.96-9.15); NEUTROPHILS PERCENT AUTO 92 % (41-73); NRBC ABSOLUTE 0.02 K/mm3 (0.00-0.02); NRBC Auto 0.1 /100 WBC (0.0-0.2); Platelet Count 180 K/mm3 (150-400); RDW Coefficient Variation 16.1 % (11.7-14.2); RDW Standard Deviation 52.8 fL (35.1-46.3)
[2025-10-04 12:06] LABS: Albumin, Blood 1.3 g/dL (3.4-5.0); Anion Gap 16 mmol/L (3-11); Blood Urea Nitrogen 97 mg/dL (8-24); CO2, Blood 24 mmol/L (21-32); Calcium, Blood 7.9 mg/dL (8.5-10.1); Chloride, Blood 94 mmol/L (98-108); Creatinine, Blood 7.26 mg/dL (0.60-1.20); Glucose, Blood 301 mg/dL (70-99); Phosphorus, Blood 5.9 mg/dL (2.5-4.9); Potassium, Blood 3.8 mmol/L (3.5-5.5); Sodium, Blood 130 mmol/L (136-145)
[2025-10-04] MEDS ORDERED: NS 1,000 ML IV ONE (14:59)
[2025-10-04] MEDS ORDERED: Ondansetron HCl 2 MG / ML 2ML Vial ONE (15:17)
[2025-10-04] MEDS ORDERED: Sugammadex Sodium 200 MG/2ML SDV (100 MG/ML) ONE (15:17)
[2025-10-04] MEDS ORDERED: Rocuronium Bromide 10 MG/ML 5ML Injection IV ONE (15:17)
[2025-10-04] MEDS ORDERED: FentaNYL Citrate 50 MCG/ML 2 ML Injection ONE (15:17)
--- NOTE | 2025-10-04 15:42 | NUR ---
PATIENT LEFT UNIT FOR OR
[2025-10-04] MEDS ORDERED: Glycopyrrolate 0.2 MG/ML 5ML VIAL ONE (16:02)
[2025-10-04] MEDS ORDERED: ePHEDrine Sulfate 50 MG/ML 1ML Injection ONE (16:04)
--- NOTE | 2025-10-04 17:08 | NUR ---
PATIENT RETURN FROM OR
[2025-10-04] MEDS ORDERED: FentaNYL Citrate 50 MCG/ML 2 ML Injection IV PRN (18:50)
[2025-10-04 21:21] LABS: Albumin, Blood 1.6 g/dL (3.4-5.0); Anion Gap 15 mmol/L (3-11); Blood Urea Nitrogen 90 mg/dL (8-24); CO2, Blood 21 mmol/L (21-32); Calcium, Blood 7.4 mg/dL (8.5-10.1); Chloride, Blood 98 mmol/L (98-108); Creatinine, Blood 7.25 mg/dL (0.60-1.20); Glucose, Blood 208 mg/dL (70-99); Phosphorus, Blood 5.4 mg/dL (2.5-4.9); Potassium, Blood 3.3 mmol/L (3.5-5.5); Sodium, Blood 131 mmol/L (136-145)
[2025-10-04 21:26] LABS: BASOPHILS ABSOLUTE AUTO 0.02 K/mm3 (0.00-0.23); BASOPHILS PERCENT AUTO 0 % (0-2); EOSINOPHILS ABSOLUTE AUTO 0.06 K/mm3 (0.00-0.68); EOSINOPHILS PERCENT AUTO 1 % (0-6); Hematocrit 23.6 % (37.0-53.0); Hemoglobin 7.9 g/dL (13.5-17.5); IMMATURE GRAN ABSOLUTE AUTO 0.43 K/mm3 (0.00-0.10); IMMATURE GRAN PERCENT AUTO 4 % (0-1); LYMPHOCYTES ABSOLUTE AUTO 0.36 K/mm3 (0.84-5.20); LYMPHOCYTES PERCENT AUTO 3 % (21-46); MONOCYTES ABSOLUTE AUTO 0.44 K/mm3 (0.16-1.47); MONOCYTES PERCENT AUTO 4 % (4-13); Mean Corpuscular HGB Conc 33.5 g/dL (31.5-36.5); Mean Corpuscular Volume 92 fL (80-100); NEUTROPHILS ABSOLUTE AUTO 9.62 K/mm3 (1.96-9.15); NEUTROPHILS PERCENT AUTO 88 % (41-73); NRBC ABSOLUTE 0.03 K/mm3 (0.00-0.02); NRBC Auto 0.3 /100 WBC (0.0-0.2); Platelet Count 165 K/mm3 (150-400); RDW Coefficient Variation 16.4 % (11.7-14.2); RDW Standard Deviation 54.2 fL (35.1-46.3)
[2025-10-05] VITALS (12 sets, daily range): BP systolic 105–149; BP diastolic 41–85
[2025-10-05 03:33] LABS: BASOPHILS ABSOLUTE AUTO 0.02 K/mm3 (0.00-0.23); BASOPHILS PERCENT AUTO 0 % (0-2); EOSINOPHILS ABSOLUTE AUTO 0.08 K/mm3 (0.00-0.68); EOSINOPHILS PERCENT AUTO 1 % (0-6); Hematocrit 23.1 % (37.0-53.0); Hemoglobin 7.8 g/dL (13.5-17.5); IMMATURE GRAN ABSOLUTE AUTO 0.43 K/mm3 (0.00-0.10); IMMATURE GRAN PERCENT AUTO 4 % (0-1); LYMPHOCYTES ABSOLUTE AUTO 0.23 K/mm3 (0.84-5.20); LYMPHOCYTES PERCENT AUTO 2 % (21-46); MONOCYTES ABSOLUTE AUTO 0.37 K/mm3 (0.16-1.47); MONOCYTES PERCENT AUTO 4 % (4-13); Mean Corpuscular HGB Conc 33.8 g/dL (31.5-36.5); Mean Corpuscular Volume 90 fL (80-100); NEUTROPHILS ABSOLUTE AUTO 9.33 K/mm3 (1.96-9.15); NEUTROPHILS PERCENT AUTO 89 % (41-73); NRBC ABSOLUTE 0.03 K/mm3 (0.00-0.02); NRBC Auto 0.3 /100 WBC (0.0-0.2); Platelet Count 153 K/mm3 (150-400); RDW Coefficient Variation 16.3 % (11.7-14.2); RDW Standard Deviation 53.6 fL (35.1-46.3)
[2025-10-05 03:53] LABS: Albumin, Blood 1.3 g/dL (3.4-5.0); Anion Gap 14 mmol/L (3-11); Blood Urea Nitrogen 83 mg/dL (8-24); CO2, Blood 23 mmol/L (21-32); Calcium, Blood 7.6 mg/dL (8.5-10.1); Chloride, Blood 95 mmol/L (98-108); Creatinine, Blood 6.83 mg/dL (0.60-1.20); Glucose, Blood 383 mg/dL (70-99); Magnesium, Blood 1.6 mg/dL (1.6-2.4); Phosphorus, Blood 5.8 mg/dL (2.5-4.9); Potassium, Blood 3.2 mmol/L (3.5-5.5); Sodium, Blood 129 mmol/L (136-145); Vancomycin, Random 18.3 ug/mL
--- NOTE | 2025-10-05 05:04 | NUR ---
NOC SHIFT SUMMARY PT HAD GOOD NIGHT OVERALL. REQUIRED FREQUENT DOSES OF PRN PAIN MEDICATION. PT ALERT ORIENTED AND COOPERATIVE W/ CARE. LUNGS CLEAR. WORE HOME CPAP FOR MAJORITY OF NIGHT. O2 SATS>95%. SINUS RAMAN VIA CONTINUOUS FINISH INSPECTOR, RATE OF 50S. BP STABLE W/ MAPS>65. 0600 AM DOSE OF MIDODRINE HELD PER PARAMETER. PT AFEBRILE. NO BM THIS SHIFT. MINIMAL URINE OUTPUT. PERITONEAL DIALYSIS ONGOING. CATH SITE C/D/I. PT HAD LARGE AMOUNT OF SEROSANGUINOUS DRAINAGE FROM SURGICAL SITE- REDRESSED W/ ABD PAD. PT TOLERATED DRESSING CHANGE WELL AND PARTICIPATED IN TURNS. PT USING CALL LIGHT APPROPRIATELY, WITHIN REACH. BED IN LOWEST, LOCKED POSITION PLAN OF CARE ONGOING
--- NOTE | 2025-10-05 09:41 | NUR ---
PD RN TO PT BEDSIDE IN ICU12 AT APPROX 0815AM TO DISCONNECT CCPD NIGHT TREATMENT. PT SITTING IN BED WATCHING TV, STATES HE IS FEELING A LITTLE BETTER. TOTAL UF: 405 ML I DRAIN: 208 ML LOST DWELL: 0:44 AVERAGE DWEL: 0:44 PT DISCONNECTED PER ASEPTIC PROTOCOL AT APPROX 0830AM NO ALARMS OCCURED THROUGHOUT NIGHT NO FIBRIN OBSERVED IN DRAIN BAG
--- NOTE | 2025-10-05 10:04 | NUR ---
AM NOTE: PT A/OX4 ABLE TO MAKE HIS NEEDS KNOWN. HE IS ON RA WITH SPO2>90%. HE REMAINS IN SINUS/SB RATES IN THE 50S WITH A 1* BLOCK. DR IRIZARRY TO BEDSIDE TO DO AM WOUND CARE. WOUND PACKED WITH WET TO DRY CURLEX AND COVERED WITH ABD. PT MEDICATED PER DEC FOR PAIN. CALL LIGHT IN REACH, CARE CONTINUES
[2025-10-05 11:30] LABS: BASOPHILS ABSOLUTE AUTO 0.03 K/mm3 (0.00-0.23); BASOPHILS PERCENT AUTO 0 % (0-2); EOSINOPHILS ABSOLUTE AUTO 0.11 K/mm3 (0.00-0.68); EOSINOPHILS PERCENT AUTO 1 % (0-6); Hematocrit 24.3 % (37.0-53.0); Hemoglobin 8.2 g/dL (13.5-17.5); IMMATURE GRAN ABSOLUTE AUTO 0.52 K/mm3 (0.00-0.10); IMMATURE GRAN PERCENT AUTO 5 % (0-1); LYMPHOCYTES ABSOLUTE AUTO 0.32 K/mm3 (0.84-5.20); LYMPHOCYTES PERCENT AUTO 3 % (21-46); MONOCYTES ABSOLUTE AUTO 0.48 K/mm3 (0.16-1.47); MONOCYTES PERCENT AUTO 4 % (4-13); Mean Corpuscular HGB Conc 33.7 g/dL (31.5-36.5); Mean Corpuscular Volume 91 fL (80-100); NEUTROPHILS ABSOLUTE AUTO 10.01 K/mm3 (1.96-9.15); NEUTROPHILS PERCENT AUTO 87 % (41-73); NRBC ABSOLUTE 0.03 K/mm3 (0.00-0.02); NRBC Auto 0.3 /100 WBC (0.0-0.2); Platelet Count 137 K/mm3 (150-400); RDW Coefficient Variation 16.3 % (11.7-14.2); RDW Standard Deviation 54.0 fL (35.1-46.3)
[2025-10-05 11:51] LABS: Albumin, Blood 1.7 g/dL (3.4-5.0); Anion Gap 14 mmol/L (3-11); Blood Urea Nitrogen 83 mg/dL (8-24); CO2, Blood 21 mmol/L (21-32); Calcium, Blood 7.3 mg/dL (8.5-10.1); Chloride, Blood 97 mmol/L (98-108); Creatinine, Blood 7.19 mg/dL (0.60-1.20); Glucose, Blood 268 mg/dL (70-99); Phosphorus, Blood 5.6 mg/dL (2.5-4.9); Potassium, Blood 3.4 mmol/L (3.5-5.5); Sodium, Blood 129 mmol/L (136-145)
--- NOTE | 2025-10-05 13:36 | NUR ---
DISCHARGE NOTE: PT LEFT VIA AMBULANCE AT APPROX 1330. FAMILY UP TO DATE ON PLAN OF CARE. REPORT CALLED TO EDWIN AT [facility]. NO QUESTIONS AT TIME OF DISCHARGE.
== END 2025-10-05 14:07 | disposition short-term general hospital (02) | DRG 853 ==
LOC: ER 21:13 → ICUE 10-03 00:42
PROVIDERS: Emergency Medicine; Internal Medicine Nephrology; Student in an Organized Health Care Education/Training Program; ADMIT Student in an Organized Health Care Education/Training Program
PROC: 3E02340 Introduction of Influenza Vaccine into Muscle, Percutaneous Approach (ICD-10-PCS; 2025-10-03)
PROC: 3E033XZ Introduction of Vasopressor into Peripheral Vein, Percutaneous Approach (ICD-10-PCS; 2025-10-03)
PROC: 3E03329 Introduction of Other Anti-infective into Peripheral Vein, Percutaneous Approach (ICD-10-PCS; 2025-10-03)
PROC: 0JB70ZZ Excision of Back Subcutaneous Tissue and Fascia, Open Approach (ICD-10-PCS; principal; 2025-10-03 01:00)
PROC: 0JB70ZZ Excision of Back Subcutaneous Tissue and Fascia, Open Approach (ICD-10-PCS; 2025-10-04)
DX: A41.51 Sepsis due to Escherichia coli [E. coli] (principal); N18.6 End stage renal disease; R65.21 Severe sepsis with septic shock; I48.92 Unspecified atrial flutter; I13.2 Hypertensive heart and chronic kidney disease with heart failure and with stage 5 chronic kidney disease, or end stage renal disease; I50.22 Chronic systolic (congestive) heart failure; E87.1 Hypo-osmolality and hyponatremia; K61.1 Rectal abscess; E11.52 Type 2 diabetes mellitus with diabetic peripheral angiopathy with gangrene; D62 Acute posthemorrhagic anemia; Z99.2 Dependence on renal dialysis; D63.1 Anemia in chronic kidney disease; N49.3 Fournier gangrene; E11.22 Type 2 diabetes mellitus with diabetic chronic kidney disease; E78.5 Hyperlipidemia, unspecified; G89.4 Chronic pain syndrome; G47.33 Obstructive sleep apnea (adult) (pediatric); I25.10 Atherosclerotic heart disease of native coronary artery without angina pectoris; I08.0 Rheumatic disorders of both mitral and aortic valves; E87.6 Hypokalemia; D69.6 Thrombocytopenia, unspecified; E83.42 Hypomagnesemia; E11.65 Type 2 diabetes mellitus with hyperglycemia; I48.0 Paroxysmal atrial fibrillation; Z96.652 Presence of left artificial knee joint; E66.9 Obesity, unspecified; E88.09 Other disorders of plasma-protein metabolism, not elsewhere classified; Z88.8 Allergy status to other drugs, medicaments and biological substances; Z23 Encounter for immunization; Z95.2 Presence of prosthetic heart valve; Z79.01 Long term (current) use of anticoagulants; Z86.711 Personal history of pulmonary embolism; Z79.1 Long term (current) use of non-steroidal anti-inflammatories (NSAID); Z79.891 Long term (current) use of opiate analgesic; Z79.899 Other long term (current) drug therapy; Z79.85 Long-term (current) use of injectable non-insulin antidiabetic drugs; Z79.2 Long term (current) use of antibiotics; Z98.84 Bariatric surgery status; Z86.73 Personal history of transient ischemic attack (TIA), and cerebral infarction without residual deficits; Z90.49 Acquired absence of other specified parts of digestive tract; Z87.19 Personal history of other diseases of the digestive system; Z68.33 Body mass index [BMI] 33.0-33.9, adult
CPT/HCPCS: 10060; 36415; 36569; 74176; 80053; 80069; 80202; 82947; 83605; 83735; 85025; 85610; 86850; 86900; 86901; 87040; 87070; 87075; 87077; 87186; 87205; 93306; 96365; 96368; 96375; 99283-25; 99285-25; A9270; C1751; J0692; J0881; J1100; J1171; J2371; J2405; J2543; J2704; J3010; J3373; J3475; J7030; J7040; J7050; J7120; J7168